=== PATIENT | female | born 1990 | race Caucasian/White ===

== ENCOUNTER → 2016-11-26 | Outpatient (CLI) | payer OTHER, BC ==
--- NOTE | 2016-11-27 20:41 | US ---
Examination: Greater than 14 weeks transabdominal ultrasound with color Doppler and M-mode evaluatio n. HISTORY: Screening FINDINGS: LMP is 06/11/2016 EVALUATION: Posterior placenta with a breech lie and grade 1-2. Visually amniotic fluid is wit hin normal limits. Three-vessel cord is seen. Ventricles are within normal limits. Four chamber heart is noted. Heart rate is 137 beats per minute. BIOMETRY AND GESTATIONAL AGE: Biparietal diameter 4.6 cm. The abdominal circumference measures 14.9 cm. The femoral length is 3.1 cm with head circumference of 17.1 cm. Gestational age is 19 weeks and 5 days. The expected date of delivery is approximately 04/17/2017. Fetus weight is 315 grams. Overall the fetus is within the less than 3rd percentile. The previous estimated date of delivery was 04/07/2017. Other detail anatomy summarized into PACs sheet after the images. No anatomical anomalies. IMPRESSION: 1. Single active IU with breech fetus. Posterior placenta with grade 1-2, no placenta prev ia. 2. The fetus measures small for gestational age, the estimated date of delivery is 04/17/2017, previou sly the estimated date of delivery was 04/07/2017.
== END | disposition home or self-care (01) ==
LOC: MW.US 14:01
PROVIDERS: ATTEND Obstetrics & Gynecology
DX: Z36 Encounter for antenatal screening of mother (principal); O32.1XX0 Maternal care for breech presentation, not applicable or unspecified; Z3A.19 19 weeks gestation of pregnancy
CPT/HCPCS: 36415; 76805; 76805-26; 82950

== ENCOUNTER → 2016-12-25 | Outpatient (CLI) | payer OTHER, BC | LOC: MW.CHOBGYN 14:32 | PROVIDERS: ATTEND Obstetrics & Gynecology | DX: Z34.90 Encounter for supervision of normal pregnancy, unspecified, unspecified trimester (principal) | CPT/HCPCS: 36415; 81003; 85027 ==

== ENCOUNTER 2017-04-15 03:30 | Inpatient (IN) | payer OTHER, SELFPAY ==
[2017-04-15] MEDS ORDERED: Sodium Chloride 0.9% 10 ML Syringe FLUSH PRN (03:46)
[2017-04-15] MEDS ORDERED: Misoprostol 200 MCG Tab PO PRN (03:46)
[2017-04-15] MEDS ORDERED: Sodium Chloride 0.9% 2.5 ML Syringe FLUSH PRN (03:46)
[2017-04-15] MEDS ORDERED: Nalbuphine 10 MG/1 ML Vial IVPUSH PRN ×3 (03:46→22:12)
[2017-04-15] MEDS ORDERED: Terbutaline 1 MG/ML SDV SUBCUT PRN (03:46)
[2017-04-15] MEDS ORDERED: Lidocaine 1% 50 ML MDV INJECT PRN (03:46)
[2017-04-15] MEDS ORDERED: Water For Irrigation,Sterile 1,000 ML Container IRR PRN (03:46)
[2017-04-15] MEDS ORDERED: Methylergonovine 0.2 MG/1 ML Amp IM PRN (03:46)
[2017-04-15] MEDS ORDERED: Carboprost Tromethamine 250 MCG/1 ML Amp IM PRN (03:46)
[2017-04-15] MEDS ORDERED: Oxytocin/Lactated Ringers 30 UNIT/500 ML BAG IV SCH (04:00)
[2017-04-15] MEDS ORDERED: Misoprostol 25 MCG (1/4 of 100 MCG) Tab VAG SCH (04:00)
[2017-04-15] MEDS ORDERED: Misoprostol 25 MCG (1/4 of 100 MCG) Tab PO SCH (04:00)
[2017-04-15] MEDS: Misoprostol 25 MCG (1/4 of 100 MCG) Tab PO PRN ×2 (08:38→12:45)
[2017-04-15] MEDS: Misoprostol 25 MCG (1/4 of 100 MCG) Tab VAG PRN ×2 (08:38→12:45)
--- NOTE | 2017-04-15 12:37 | PCM.LDHP ---
L&D History of Present Illness - General Date of Service: 04/15/17 Admit Problem/Dx: Patient Status Order with Admit Dx/Problem 04/15/17 03:46 Patient Status [ADT] Routine Admission Diagnosis/Problem Admission Diagnosis/Problem 04/15/17 12:33 26 yo EDC 04/07/2017 41 1/7 wks gestation.A+, Rubella equivocal, GBS neg. IOL for post dates Source of Information: Patient History Limitations: Reports: No Limitations - History of Present Illness Improves with: Reports: None Worsens with: Reports: None Associated Symptoms: Reports: N - Related Data Allergies/Adverse Reactions: Allergies Allergy/AdvReac Type Severity Reaction Status Date / Time No Known Allergies Allergy Verified 11/07/15 11:35 Home Medications: Home Meds Drospir/Eth Estra/Levomefol Ca [Beyaz 28] 1 tab PO ASDIRECTED 11/07/15 [History] Past Medical History HEENT History: Reports: Impaired Vision Other HEENT History: wears glasses Cardiovascular History: Reports: None Respiratory History: Reports: None Gastrointestinal History: Reports: None Genitourinary History: Reports: None 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 Migranes, takes Excedrine Psychiatric History: Reports: None Endocrine/Metabolic History: Reports: None Hematologic History: Reports: None Immunologic History: Reports: None Oncologic (Cancer) History: Reports: None Dermatologic History: Reports: Other (See Below) Other Dermatologic History: states gets skin rash from dish soap - Past Surgical History Female Surgical History: Reports: LEEP Social & Family History - Family History Family Medical History: Noncontributory - Tobacco Use Smoking Status *Q: Never Smoker - Recreational Drug Use Recreational Drug Use: No Drug Use in Last 12 Months: No H&P Review of Systems - Review of Systems: Review Of Systems: See Below General: Reports: No Symptoms HEENT: Reports: No Symptoms Pulmonary: Reports: No Symptoms Cardiovascular: Reports: No Symptoms Gastrointestinal: Reports: No Symptoms Genitourinary: Reports: No Symptoms Musculoskeletal: Reports: No Symptoms Skin: Reports: No Symptoms Psychiatric: Reports: No Symptoms Neurological: Reports: No Symptoms Hematologic/Lymphatic: Reports: No Symptoms Immunologic: Reports: No Symptoms L&D Exam - Exam Exam: See Below - Vital Signs Weight: 68.946 kg - Exam General: Alert, Oriented, Cooperative HEENT: Hearing Intact Lungs: Normal Respiratory Effort GI/Abdominal Exam: Soft, Non-Tender, No Organomegaly Rectal Exam: Deferred Genitourinary: Normal external exam, Normal bimanual exam Back Exam: Full Range of Motion Extremities: Normal Range of Motion, Non-Tender, No Pedal Edema Skin: Warm, Dry, Intact Neurological: Reflexes Equal Bilateral, Normal Speech, Normal Tone Psychiatric: Alert, Normal Affect, Normal Mood - Patient Data Lab Results Last 24 hrs: Laboratory Results - last 24 hr 04/15/17 04/15/17 Range/Units 04:03 04:03 WBC 9.31 (4.0-11.0) K/uL RBC 4.23 L (4.30-5.90) M/uL Hgb 12.0 (12.0-16.0) g/dL Hct 36.5 (36.0-46.0) % MCV 86.3 (80.0-98.0) fL MCH 28.4 (27.0-32.0) pg MCHC 32.9 (31.0-37.0) g/dL RDW Std Deviation 43.8 (28.0-62.0) fl RDW Coeff of Piyush 14 (11.0-15.0) % Plt Count 208 (150-400) K/uL MPV 10.60 (7.40-12.00) fL Nucleated RBC % 0.0 /100WBC Nucleated RBCs # 0 K/uL Blood Type A POSITIVE Antibody Screen NEGATIVE Result Diagrams: 04/15/17 04:03 - Problem List (1) Supervision of normal IUP (intrauterine ) in primigravida SNOMED Code(s): 95371957, 517494011, 562564480, 318232044 ICD Code: Z34.00 - ENCNTR FOR SUPRVSN OF NORMAL FIRST , UNSP TRIMESTER Status: Acute Priority: High Current Visit: Yes Qualifiers: Trimester: third trimester Qualified Code(s): Z34.03 - Encounter for supervision of normal first , third trimester (2) Post-dates SNOMED Code(s): 37830141 ICD Code: O48.0 - POST-TERM Status: Acute Priority: High Current Visit: Yes Qualifiers: Post-term type: 40-42 weeks gestation Qualified Code(s): O48.0 - Post-term Problem List Initiated/Reviewed/Updated: Yes Orders Last 24hrs: Active Orders 24 hr Category Date Time Status Patient Status [ADT] Routine ADT 04/15/17 03:46 Active Bedrest Bathroom Privileges [RC] ASDIRECTED Care 04/15/17 03:46 Active Communication Order [RC] ASDIRECTED Care 04/15/17 03:46 Active Communication Order [RC] ASDIRECTED Care 04/15/17 03:46 Active Communication Order [RC] ASDIRECTED Care 04/15/17 03:46 Active Heart Tones [RC] CONTINUOUS Care 04/15/17 03:46 Active Non Stress Test [RC] PER UNIT ROUTINE Care 04/15/17 03:46 Active May Shower [RC] ASDIRECTED Care 04/15/17 03:46 Active Notify Provider [RC] PRN Care 04/15/17 03:46 Active Notify Provider [RC] PRN Care 04/15/17 03:46 Active Notify Provider [RC] PRN Care 04/15/17 03:46 Active Notify Provider [RC] STAT Care 04/15/17 03:46 Active Oxygen Therapy [RC] ASDIRECTED Care 04/15/17 03:46 Active Up ad Ruth [RC] ASDIRECTED Care 04/15/17 03:46 Active Vaginal Exam [RC] PRN Care 04/15/17 03:46 Active Vaginal Exam [RC] PRN Care 04/15/17 03:46 Active Vital Signs [RC] PER UNIT ROUTINE Care 04/15/17 03:46 Active Vital Signs [RC] PER UNIT ROUTINE Care 04/15/17 03:46 Active Regular Diet [DIET] Diet 04/15/17 Breakfast Active Carboprost Tromethamine [Hemabate DS] Med 04/15/17 03:46 Active 250 mcg IM ASDIRECTED PRN Lactated Ringers [Ringers, Lactated] 1,000 ml Med 04/15/17 04:00 Active IV ASDIRECTED Lidocaine 1% [Xylocaine 1%] Med 04/15/17 03:46 Active 50 ml INJECT .ONCE PRN Methylergonovine [Methergine] Med 04/15/17 03:46 Active 0.2 mg IM ASDIRECTED PRN Misoprostol [Cytotec] Med 04/15/17 03:46 Active 200 mcg PO .ONCE PRN Misoprostol [Cytotec] Med 04/15/17 04:00 Active 25 mcg PO .ONCE Misoprostol [Cytotec] Med 04/15/17 03:48 Active 25 mcg PO Q4H PRN Misoprostol [Cytotec] Med 04/15/17 04:00 Active 25 mcg VAG .ONCE Misoprostol [Cytotec] Med 04/15/17 03:46 Active 25 mcg VAG Q4H PRN Sodium Chloride 0.9% [Saline Flush] Med 04/15/17 03:46 Active 10 ml FLUSH ASDIRECTED PRN Sodium Chloride 0.9% [Saline Flush] Med 04/15/17 03:46 Active 2.5 ml FLUSH ASDIRECTED PRN Terbutaline [Brethine] Med 04/15/17 03:46 Active 0.25 mg SUBCUT ASDIRECTED PRN Water For Irrigation,Sterile [Sterile Water for Med 04/15/17 03:46 Active Irrigation] 1,000 ml IRR ASDIRECTED PRN Scalp Electrode [WOMSER] Per Unit Routine Oth 04/15/17 03:46 Ordered Medication Administration Instruction [OM.PC] Q3H Oth 04/15/17 04:00 Ordered Peripheral IV Insertion Adult [OM.PC] Routine Oth 04/15/17 03:46 Ordered Resuscitation Status Routine Resus Stat 04/15/17 03:46 Ordered Medication Orders Carboprost Tromethamine (Hemabate Ds) 250 mcg IM ASDIRECTED PRN PRN Reason: Post Hemorrhage Lactated Ringer's (Ringers, Lactated) 1,000 mls @ 150 mls/hr IV ASDIRECTED CHARLES Lidocaine HCl (Xylocaine 1%) 50 ml INJECT .ONCE PRN PRN Reason: Laceration repair Methylergonovine Maleate (Methergine) 0.2 mg IM ASDIRECTED PRN PRN Reason: Post Hemorrhage Misoprostol (Cytotec) 200 mcg PO .ONCE PRN PRN Reason: Post Hemorrhage Misoprostol (Cytotec) 25 mcg VAG .ONCE CHARLES Last Admin: 04/15/17 04:22 Dose: 25 mcg Misoprostol (Cytotec) 25 mcg VAG Q4H PRN PRN Reason: Cervical Ripening Stop: 04/16/17 07:47 Last Admin: 04/15/17 08:38 Dose: 25 mcg Misoprostol (Cytotec) 25 mcg PO .ONCE CHARLES Last Admin: 04/15/17 04:22 Dose: 25 mcg Misoprostol (Cytotec) 25 mcg PO Q4H PRN PRN Reason: Cervical Ripening Stop: 04/16/17 07:49 Last Admin: 04/15/17 08:38 Dose: 25 mcg Sodium Chloride (Saline Flush) 10 ml FLUSH ASDIRECTED PRN PRN Reason: Keep Vein Open Sodium Chloride (Saline Flush) 2.5 ml FLUSH ASDIRECTED PRN PRN Reason: Keep Vein Open Sterile Water (Sterile Water For Irrigation) 1,000 ml IRR ASDIRECTED PRN PRN Reason: delivery Terbutaline Sulfate (Brethine) 0.25 mg SUBCUT ASDIRECTED PRN PRN Reason: Tacysystole Assessment/Plan Comment:: IOL A: 26 yo EDC 04/07/2017 41 1/7 wks gestation.A+, Rubella equivocal, GBS neg. IOL for post dates P: Cytotec per protocol, pitocin, epidural prn, anticipate
--- NOTE | 2017-04-15 15:13 | PCM.PREANE ---
Preanesthetic Assessment - Anesthesia/Transfusion/Family Hx Anesthesia History: Prior Anesthesia Without Reaction - Review of Systems General: No Symptoms Pulmonary: No Symptoms Cardiovascular: No Symptoms Gastrointestinal: No Symptoms Neurological: No Symptoms Other: Reports: None - Physical Assessment Height: 1.68 m Weight: 68.946 kg ASA Class: 1 Mental Status: Alert & Oriented x3 Dentition: Reports: Normal Dentition ROM/Head Extension: Full Lungs: Clear to Auscultation, Normal Respiratory Effort Cardiovascular: Regular Rate, Regular Rhythm - Lab Values: Laboratory Last Values WBC 9.31 K/uL (4.0-11.0) 04/15/17 04:03 RBC 4.23 M/uL (4.30-5.90) L 04/15/17 04:03 Hgb 12.0 g/dL (12.0-16.0) 04/15/17 04:03 Hct 36.5 % (36.0-46.0) 04/15/17 04:03 MCV 86.3 fL (80.0-98.0) 04/15/17 04:03 MCH 28.4 pg (27.0-32.0) 04/15/17 04:03 MCHC 32.9 g/dL (31.0-37.0) 04/15/17 04:03 RDW Std Deviation 43.8 fl (28.0-62.0) 04/15/17 04:03 RDW Coeff of Piyush 14 % (11.0-15.0) 04/15/17 04:03 Plt Count 208 K/uL (150-400) 04/15/17 04:03 MPV 10.60 fL (7.40-12.00) 04/15/17 04:03 Nucleated RBC % 0.0 /100WBC 04/15/17 04:03 Nucleated RBCs # 0 K/uL 04/15/17 04:03 Blood Type A POSITIVE 04/15/17 04:03 Antibody Screen NEGATIVE 04/15/17 04:03 - Allergies Allergies/Adverse Reactions: Allergies Allergy/AdvReac Type Severity Reaction Status Date / Time No Known Allergies Allergy Verified 11/07/15 11:35 - Blood Blood Available: Yes - Acknowledgements Anesthesia Type Planned: Epidural Pt an Appropriate Candidate for the Planned Anesthesia: Yes Alternatives and Risks of Anesthesia Discussed w Pt/Guardian: Yes Pt/Guardian Understands and Agrees with Anesthesia Plan: Yes PreAnesthesia Questionnaire HEENT History: Reports: Impaired Vision Other HEENT History: wears glasses Cardiovascular History: Reports: None Respiratory History: Reports: None Gastrointestinal History: Reports: None Genitourinary History: Reports: None 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 Migranes, takes Excedrine Psychiatric History: Reports: None Endocrine/Metabolic History: Reports: None Hematologic History: Reports: None Immunologic History: Reports: None Oncologic (Cancer) History: Reports: None Dermatologic History: Reports: Other (See Below) Other Dermatologic History: states gets skin rash from dish soap - Past Surgical History Female Surgical History: Reports: LEEP - SUBSTANCE USE Smoking Status *Q: Never Smoker Tobacco Use Within Last Twelve Months: No Recreational Drug Use History: No - HOME MEDS Home Medications: Home Meds Drospir/Eth Estra/Levomefol Ca [Beyaz 28] 1 tab PO ASDIRECTED 11/07/15 [History] - CURRENT (IN HOUSE) MEDS Current Meds: Current Medications Carboprost Tromethamine (Hemabate Ds) 250 mcg IM ASDIRECTED PRN PRN Reason: Post Hemorrhage Lactated Ringer's (Ringers, Lactated) 1,000 mls @ 150 mls/hr IV ASDIRECTED CHARLES Lidocaine HCl (Xylocaine 1%) 50 ml INJECT .ONCE PRN PRN Reason: Laceration repair Methylergonovine Maleate (Methergine) 0.2 mg IM ASDIRECTED PRN PRN Reason: Post Hemorrhage Misoprostol (Cytotec) 200 mcg PO .ONCE PRN PRN Reason: Post Hemorrhage Misoprostol (Cytotec) 25 mcg VAG .ONCE CHARLES Last Admin: 04/15/17 04:22 Dose: 25 mcg Misoprostol (Cytotec) 25 mcg VAG Q4H PRN PRN Reason: Cervical Ripening Stop: 04/16/17 07:47 Last Admin: 04/15/17 12:45 Dose: 25 mcg Misoprostol (Cytotec) 25 mcg PO .ONCE CHARLES Last Admin: 04/15/17 04:22 Dose: 25 mcg Misoprostol (Cytotec) 25 mcg PO Q4H PRN PRN Reason: Cervical Ripening Stop: 04/16/17 07:49 Last Admin: 04/15/17 12:45 Dose: 25 mcg Nalbuphine HCl (Nubain) 10 mg IVPUSH Q1H PRN PRN Reason: Pain (moderate 4-6) Last Admin: 04/15/17 14:58 Dose: 10 mg Sodium Chloride (Saline Flush) 10 ml FLUSH ASDIRECTED PRN PRN Reason: Keep Vein Open Sodium Chloride (Saline Flush) 2.5 ml FLUSH ASDIRECTED PRN PRN Reason: Keep Vein Open Sterile Water (Sterile Water For Irrigation) 1,000 ml IRR ASDIRECTED PRN PRN Reason: delivery Terbutaline Sulfate (Brethine) 0.25 mg SUBCUT ASDIRECTED PRN PRN Reason: Tacysystole Discontinued Medications Oxytocin/Lactated Ringer's (Pitocin In Lr 30 Units/500 Ml) 30 unit in 500 mls @ 999 mls/hr IV TITRATE CHARLES; 999 MUNITS/MIN PRN Reason: Protocol Stop: 04/15/17 04:31 Nalbuphine HCl (Nubain) 10 mg IVPUSH Q1H PRN PRN Reason: Pain (severe 7-10) Stop: 04/15/17 04:47
[2017-04-15] MEDS: Lactated Ringers 1,000 ML IV SCH ×4 (15:14→23:50)
[2017-04-15] MEDS ORDERED: fentaNYL 100 MCG/2 ML SDV ONE ×3 (15:23→21:22)
[2017-04-15] MEDS ORDERED: Ropivacaine HCl/PF 100 ML ONE (15:24)
[2017-04-15] MEDS ORDERED: Oxytocin/Lactated Ringers 30 UNIT/500 ML BAG ONE (17:01)
[2017-04-15] MEDS ORDERED: Ropivacaine 0.2% 2 MG/ML 20 ML SDV ONE (20:36)
[2017-04-15] MEDS ORDERED: Citric Acid/Sodium Citrate Solution 30 ML Cup ONE (20:40)
[2017-04-15] MEDS ORDERED: Propofol 200 MG/20 ML SDV ONE (21:15)
[2017-04-15] MEDS ORDERED: Ketamine 500 mg/10 ML MDV ONE (21:22)
[2017-04-15] MEDS ORDERED: Octyl 2-Cyanoacrylate 1 Tube ONE (21:48)
[2017-04-15] MEDS ORDERED: Morphine PF 10 MG/10 ML SDV ONE (21:50)
[2017-04-15] MEDS ORDERED: Lanolin 100% Cream 7 GM Tube TOP PRN (21:54)
[2017-04-15] MEDS ORDERED: Bisacodyl 10 MG Supp RECTAL PRN (21:54)
[2017-04-15] MEDS ORDERED: Acetaminophen/oxyCODONE 325-5 MG Tab PO PRN (21:54)
[2017-04-15] MEDS ORDERED: diphenhydrAMINE 50 MG/ML SDV IVPUSH PRN (21:54)
[2017-04-15] MEDS ORDERED: Ondansetron 4 MG/2 ML SDV IV PRN (21:54)
--- NOTE | 2017-04-15 21:58 | PCM.OPNOTE ---
- General Post-Op/Procedure Note Date of Surgery/Procedure: 04/15/17 Operative Procedure(s): Primary C/section Pre Op Diagnosis: Postdate Falir to progress Post-Op Diagnosis: Same Anesthesia Technique: Epidural Primary Surgeon: Jeffrey Randolph Streaming Media Specialist: Waleska Arnett EBL in mLs: 700 Complications: None Condition: Good
[2017-04-15] MEDS ORDERED: Naloxone 0.4 MG/ML Syringe IVPUSH PRN (22:12)
[2017-04-15] MEDS: Ketorolac 30 MG/ML SDV IVPUSH SCH (22:21)
--- NOTE | 2017-04-15 22:58 | PCM.POSTAN ---
POST ANESTHESIA ASSESSMENT - MENTAL STATUS Mental Status: Alert, Oriented - RESPIRATORY Respiratory Status: Respiratory Rate WNL, Airway Patent, O2 Saturation Stable - CARDIOVASCULAR CV Status: Pulse Rate WNL, Blood Pressure Stable - GASTROINTESTINAL GI Status: No Symptoms - PAIN Pain Score: 4 (recen toradol given) - POST OP HYDRATION Hydration Status: Adequate & Stable - OBSERVATIONS Free Text/Narrative:: Pain meds for breakthrough were written as addendum to Dr. Randolph order for oxycodone/acetominophen while neuroaxis orders in effect.
--- NOTE | 2017-04-15 23:50 | OR ---
SURGEON: Jeffrey Randolph MD DATE OF PROCEDURE: PREOPERATIVE DIAGNOSIS: Intrauterine 41 weeks plus 1 failed induction, persistent occiput posterior. POSTOPERATIVE DIAGNOSIS: Intrauterine 41 weeks plus 1 failed induction, persistent occiput posterior. OPERATION PERFORMED: Primary low transverse section. CUSTOMS APPRAISER: Waleska Arnett CNM. ANESTHESIA: Epidural, Mr. True Gonzalez and Dr. Pierce. ESTIMATED BLOOD LOSS: 700 mL. COMPLICATION: None. INDICATION FOR SURGERY: This patient is 26 primigravida. She is followed in our clinic. She was 41 plus one. She was admitted for induction. She had responded to Cytotec, and she progressed to complete, complete. The patient had spontaneous rupture of membrane, there was a clear fluid. The patient had epidural anesthesia for labor analgesia. She pushed in excess of 3 hours. I was consulted for evaluation. On my arrival, vital sign was stable. heart rate was category 1. The patient had contraction. Pelvic exam and vaginal examination revealed that she had vertex. She was complete, complete. She was +1 to +2 station, and I felt that she had an occiput posterior, and I explained that to the patient and her we gave them the option we could try vacuum extraction; however, I thought it would be a difficult vacuum extraction and the patient and her elected to have section. PROCEDURE IN DETAIL: The patient was brought to the OR, properly identified. After adequate level of epidural anesthesia with a Rascon catheter in the bladder, low transverse Pfannenstiel skin incision done. Yelena's fascia and rectus fascia were opened in direction of the incision. The 2 recti muscles were , and peritoneal cavity was entered. Low transverse uterine incision was done, extended manually with hand. Fetus position was in occiput posterior, and it was pretty jammed into the pelvis and the vagina. With the aid of the circulating nurse to push the fetus from below, I was able to extract the fetus and handed to the space sciences director for resuscitation. Dr. Ashley who was present at the time of the delivery. The fetus cried immediately. The score was 7 and 9; however, the weight was not available. Placenta delivered spontaneous, complete, and intact and repair of the lower uterine segment was done with 2-0 Vicryl continuous interlocking in 2 layers. Reperitonealization done with 3-0 Vicryl continuous and then the peritoneal cavity evacuated completely from all blood and blood clot and closed with 3-0 Vicryl continuous, and the rectus fascia is closed with #1 PDS double strand continuous. The Yelena's fascia with 3-0 Vicryl continuous and skin with 5-0 monofilament subcuticular and Dermabond. Instrument and sponge counts were correct. The patient tolerated the procedure well, went to recovery room in stable and general condition. TAMMI / RAMU /[id number]
[2017-04-16] MEDS: Acetaminophen/oxyCODONE 325-5 MG Tab PO PRN (03:01)
[2017-04-16] MEDS: Ketorolac 30 MG/ML SDV IVPUSH SCH ×4 (04:12→22:01)
[2017-04-16] MEDS: Lactated Ringers 1,000 ML IV SCH (08:11)
--- NOTE | 2017-04-16 08:12 | PCM48HPAN ---
Post Anesthesia Note - EVALUATION WITHIN 48HRS OF ANESTHETIC Vital Signs in Normal Range: Yes Patient Participated in Evaluation: Yes Respiratory Function Stable: Yes Airway Patent: Yes Cardiovascular Function Stable: Yes Hydration Status Stable: Yes Pain Control Satisfactory: Yes (Single PO analgesic overnite...good analgesia from duramorph) Nausea and Vomiting Control Satisfactory: Yes Mental Status Recovered: Yes
--- NOTE | 2017-04-16 08:25 | PCM.PNPP ---
- General Info Date of Service: 04/16/17 Admission Dx/Problem (Free Text): Patient Status Order with Admit Dx/Problem 04/15/17 03:46 Patient Status [ADT] Routine Admission Diagnosis/Problem Admission Diagnosis/Problem 04/15/17 12:33 26 yo EDC 04/07/2017 41 1/7 wks gestation.A+, Rubella equivocal, GBS neg. IOL for post dates Functional Status: Reports: Pain Controlled, Tolerating Diet - Review of Systems General: Reports: No Symptoms HEENT: Reports: No Symptoms Pulmonary: Reports: No Symptoms Cardiovascular: Reports: No Symptoms Gastrointestinal: Reports: No Symptoms Genitourinary: Reports: No Symptoms Musculoskeletal: Reports: No Symptoms Skin: Reports: No Symptoms Neurological: Reports: No Symptoms Psychiatric: Reports: No Symptoms - General Info Date of Service: 04/16/17 - Patient Data Vital Signs - Most Recent: Last Vital Signs Temp 37.3 C 04/16/17 04:30 Pulse 98 04/16/17 04:30 Resp 16 04/16/17 07:00 BP 122/76 04/16/17 04:30 Pulse Ox 96 04/16/17 07:00 Weight - Most Recent: 68.946 kg I&O - Last 24 Hours: Intake & Output 04/15/17 04/16/17 04/16/17 22:59 06:59 14:59 Intake Total 1750 1105 Output Total 250 800 Balance 1500 305 Lab Results - Last 24 Hours: Laboratory Results - last 24 hr 04/16/17 Range/Units 05:02 Hgb 10.2 L (12.0-16.0) g/dL Hct 30.9 L (36.0-46.0) % Med Orders - Current: Current Medications Bisacodyl (Dulcolax) 10 mg RECTAL .ONCE PRN PRN Reason: Constipation Carboprost Tromethamine (Hemabate Ds) 250 mcg IM ASDIRECTED PRN PRN Reason: Post Hemorrhage Diphenhydramine HCl (Benadryl) 25 mg IVPUSH Q6H PRN PRN Reason: Itching or Nausea Docusate Sodium (Colace) 100 mg PO BID CHARLES Emollient Ointment (Lansinoh Hpa) 0 gm TOP ASDIRECTED PRN PRN Reason: Sore Nipples Lactated Ringer's (Ringers, Lactated) 1,000 mls @ 150 mls/hr IV ASDIRECTED [facility] Last Admin: 04/15/17 20:46 Dose: 150 mls/hr Lactated Ringer's (Ringers, Lactated) 1,000 mls @ 125 mls/hr IV ASDIRECTED [facility] Last Admin: 04/16/17 08:11 Dose: 500 mls/hr Ibuprofen (Motrin) 800 mg PO Q8H PRN PRN Reason: mild pain or fever Ketorolac Tromethamine (Toradol) 30 mg IVPUSH Q6H [facility] Stop: 04/16/17 22:01 Last Admin: 04/16/17 04:12 Dose: 30 mg Lidocaine HCl (Xylocaine 1%) 50 ml INJECT .ONCE PRN PRN Reason: Laceration repair Methylergonovine Maleate (Methergine) 0.2 mg IM ASDIRECTED PRN PRN Reason: Post Hemorrhage Misoprostol (Cytotec) 200 mcg PO .ONCE PRN PRN Reason: Post Hemorrhage Misoprostol (Cytotec) 25 mcg VAG .ONCE [facility] Last Admin: 04/15/17 04:22 Dose: 25 mcg Misoprostol (Cytotec) 25 mcg PO .ONCE [facility] Last Admin: 04/15/17 04:22 Dose: 25 mcg Nalbuphine HCl (Nubain) 10 mg IVPUSH Q1H PRN PRN Reason: Pain (moderate 4-6) Last Admin: 04/15/17 14:58 Dose: 10 mg Nalbuphine HCl (Nubain) 5 mg IVPUSH Q3H PRN PRN Reason: Pruritis Stop: 04/16/17 22:13 Naloxone HCl (Narcan) 0.1 mg IVPUSH ONETIME PRN PRN Reason: Respiratory Depression Stop: 04/16/17 22:13 Ondansetron HCl (Zofran) 4 mg IV Q4H PRN PRN Reason: Nausea/Vomiting Oxycodone/Acetaminophen (Percocet 325-5 Mg) 1 tab PO Q4H PRN PRN Reason: Pain (moderate 4-6) Last Admin: 04/16/17 03:01 Dose: 1 tab Oxycodone/Acetaminophen (Percocet 325-5 Mg) 2 tab PO Q4H PRN PRN Reason: Pain (moderate 4-6) Sodium Chloride (Saline Flush) 10 ml FLUSH ASDIRECTED PRN PRN Reason: Keep Vein Open Sodium Chloride (Saline Flush) 2.5 ml FLUSH ASDIRECTED PRN PRN Reason: Keep Vein Open Sterile Water (Sterile Water For Irrigation) 1,000 ml IRR ASDIRECTED PRN PRN Reason: delivery Terbutaline Sulfate (Brethine) 0.25 mg SUBCUT ASDIRECTED PRN PRN Reason: Tacysystole Discontinued Medications Citric Acid/Sodium Citrate (Bicitra Solution) Confirm Administered Dose 30 ml .ROUTE .STK-MED ONE Stop: 04/15/17 20:41 Last Admin: 04/15/17 20:46 Dose: 30 ml Fentanyl (Sublimaze) Confirm Administered Dose 100 mcg .ROUTE .STK-MED ONE Stop: 04/15/17 15:24 Fentanyl (Sublimaze) Confirm Administered Dose 100 mcg .ROUTE .STK-MED ONE Stop: 04/15/17 21:11 Fentanyl (Sublimaze) Confirm Administered Dose 100 mcg .ROUTE .STK-MED ONE Stop: 04/15/17 21:23 Oxytocin/Lactated Ringer's (Pitocin In Lr 30 Units/500 Ml) 30 unit in 500 mls @ 999 mls/hr IV TITRATE CHARLES; 999 MUNITS/MIN PRN Reason: Protocol Stop: 04/15/17 04:31 Ropivacaine (Naropin 0.2%) Confirm Administered Dose 100 mls @ as directed .ROUTE .STK-MED ONE Stop: 04/15/17 15:25 Last Admin: 04/15/17 15:53 Dose: Not Given Oxytocin/Lactated Ringer's (Pitocin In Lr 30 Units/500 Ml) Confirm Administered Dose 30 unit in 500 mls @ as directed .ROUTE .STK-MED ONE Stop: 04/15/17 17:02 Ketamine HCl (Ketalar) Confirm Administered Dose 500 mg .ROUTE .STK-MED ONE Stop: 04/15/17 21:23 Misoprostol (Cytotec) 25 mcg VAG Q4H PRN PRN Reason: Cervical Ripening Stop: 04/16/17 07:47 Last Admin: 04/15/17 12:45 Dose: 25 mcg Misoprostol (Cytotec) 25 mcg PO Q4H PRN PRN Reason: Cervical Ripening Stop: 04/16/17 07:49 Last Admin: 04/15/17 12:45 Dose: 25 mcg Morphine Sulfate (Duramorph Pf) Confirm Administered Dose 10 mg .ROUTE .STK-MED ONE Stop: 04/15/17 21:51 Nalbuphine HCl (Nubain) 10 mg IVPUSH Q1H PRN PRN Reason: Pain (severe 7-10) Stop: 04/15/17 04:47 Octyl Cyanoacrylate (Dermabond Advance) Confirm Administered Dose 1 applic .ROUTE .STK-MED ONE Stop: 04/15/17 21:49 Propofol (Diprivan 20 Ml) Confirm Administered Dose 200 mg .ROUTE .STK-MED ONE Stop: 04/15/17 21:16 Ropivacaine (Naropin 0.2%) Confirm Administered Dose 20 ml .ROUTE .STK-MED ONE Stop: 04/15/17 20:37 - Interaction Disposition, : [place] in Room with Family Infant Interaction: Holding Feeding: Attempted ; Nursed Fair/Poor Support Person: Mother, Significant Other - Recovery Exam Fundal Tone: Firm Fundal Level: At Umbilicus Fundal Placement: Midline Lochia Amount: Scant Lochia Color: Rubra/Red Perineum Description: Intact, Minimal Bruising/Swelling Bladder Status: Indwelling Catheter in Place Urinary Elimination: Indwelling Catheter - Exam General: Alert, Oriented, Cooperative, No Acute Distress Lungs: Clear to Auscultation, Normal Respiratory Effort Cardiovascular: Regular Rate, Regular Rhythm, No Murmurs GI/Abdominal Exam: Soft, Non-Tender, No Organomegaly, No Distention Extremities: Normal Inspection, Normal Range of Motion, Non-Tender, No Pedal Edema Skin: Warm, Dry, Intact Wound/Incisions: Dressing Dry and Intact Neurological: No New Focal Deficit, Normal Speech, Normal Tone Psy/Mental Status: Alert, Normal Affect, Normal Mood - Problem List & Annotations (1) Supervision of normal IUP (intrauterine ) in primigravida SNOMED Code(s): 52825309, 049010334, 906350056, 834477931 Code(s): Z34.00 - ENCNTR FOR SUPRVSN OF NORMAL FIRST , UNSP TRIMESTER Status: Acute Priority: High Current Visit: Yes Qualifiers: Trimester: third trimester Qualified Code(s): Z34.03 - Encounter for supervision of normal first , third trimester (2) Post-dates SNOMED Code(s): 48610654 Code(s): O48.0 - POST-TERM Status: Acute Priority: High Current Visit: Yes Qualifiers: Post-term type: 40-42 weeks gestation Qualified Code(s): O48.0 - Post-term (3) delivery, delivered, current hospitalization SNOMED Code(s): 077027104 Code(s): O82 - ENCOUNTER FOR DELIVERY WITHOUT INDICATION Status: Acute Priority: High Current Visit: Yes - Problem List Review Problem List Initiated/Reviewed/Updated: Yes - My Orders Last 24 Hours: My Active Orders 04/15/17 14:38 Nalbuphine [Nubain] 10 mg IVPUSH Q1H PRN - Assessment Assessment:: PCS due to CPD, male, healthy, APGARS 4/9, Wt: 6lb 15oz. Post PCS, dressing dry and intact, perera cath draining with dark urine. No edema, LS clear, HRR no murmurs. Stable, good appetite. - Plan Plan:: IOL A: 26 yo EDC 04/07/2017 41 1/7 wks gestation.A+, Rubella equivocal, GBS neg. IOL for post dates P: Cytotec per protocol, pitocin, epidural prn, anticipate Post /op day 1 Routine pp plan of care. Give 500cc bolus LR and encourage fluids, OOB ad alphonso this morning, may shower. Dr Randolph updated on pt status
[2017-04-16] MEDS: Docusate Sodium 100 MG Cap PO SCH (21:05)
[2017-04-17] MEDS: Docusate Sodium 100 MG Cap PO SCH ×2 (00:12→09:06)
[2017-04-17] MEDS ORDERED: Ibuprofen 800 MG Tab PO PRN (04:00)
[2017-04-17] MEDS: Acetaminophen/oxyCODONE 325-5 MG Tab PO PRN (09:06)
[2017-04-17 09:48] VITALS: BP 118/70
--- NOTE | 2017-04-17 10:51 | PCM.DCSUM1 ---
[id number] for incision check and again at 10 days for another incision check. Follow up 6 weeks for post check. - Discharge Data Discharge Date: 04/17/17 Discharge Disposition: Home, Self-Care 01 Condition: Good - Discharge Diagnosis/Problem(s) (1) Supervision of normal IUP (intrauterine ) in primigravida SNOMED Code(s): 68533767, 365162215, 471725831, 338644048 ICD Code: Z34.00 - ENCNTR FOR SUPRVSN OF NORMAL FIRST , UNSP TRIMESTER Status: Acute Priority: High Qualifiers: Trimester: third trimester Qualified Code(s): Z34.03 - Encounter for supervision of normal first , third trimester (2) Post-dates SNOMED Code(s): 44448813 ICD Code: O48.0 - POST-TERM Status: Acute Priority: High Qualifiers: Post-term type: 40-42 weeks gestation Qualified Code(s): O48.0 - Post-term (3) delivery, delivered, current hospitalization SNOMED Code(s): 212476979 ICD Code: O82 - ENCOUNTER FOR DELIVERY WITHOUT INDICATION Status: Acute Priority: High - Patient Summary/Data Operative Procedure(s) Performed: Primary C/section - Patient Instructions Diet: Usual Diet as Tolerated Activity: As Tolerated, Rest and Relax Today Driving: May Drive Today Showering/Bathing: May Shower Notify Provider of: Fever, Increased Pain, Drainage, Nausea and/or Vomiting Other/Special Instructions: Discharge home with baby. Follow up on Saturday for incision check and again at 10 days for another incision check. Follow up 6 weeks for post check. - Discharge Plan Home Medications: Home Meds Acetaminophen/oxyCODONE [Percocet 325-5 MG] 1 - 2 tab PO Q4HR PRN 04/17/17 [ History] Ibuprofen [Motrin] 800 mg PO Q6H PRN 04/17/17 [History] Penicillin V Potassium 500 mg PO Q6HR 04/17/17 [History] Patient Handouts: Vaginal Delivery, Care After Referrals: [facility] [Outside] Jeffrey Randolph MD [Physician] - (1 week- April 19 @ 3:30pm w/ Dr. Randolph week- May 27 @ 9:30am w/ Dr. Randolph) - General Info Date of Service: 04/17/17 Admission Dx/Problem (Free Text: Patient Status Order with Admit Dx/Problem 04/15/17 03:46 Patient Status [ADT] Routine Admission Diagnosis/Problem Admission Diagnosis/Problem 04/15/17 12:33 26 yo EDC 04/07/2017 41 1/7 wks gestation.A+, Rubella equivocal, GBS neg. IOL for post dates Functional Status: Reports: Pain Controlled, Tolerating Diet, Ambulating, Urinating - Review of Systems General: Reports: No Symptoms HEENT: Reports: No Symptoms Pulmonary: Reports: No Symptoms Cardiovascular: Reports: No Symptoms Gastrointestinal: Reports: No Symptoms Genitourinary: Reports: No Symptoms Musculoskeletal: Reports: No Symptoms Skin: Reports: No Symptoms Neurological: Reports: No Symptoms Psychiatric: Reports: No Symptoms - Patient Data Vitals - Most Recent: Last Vital Signs Temp 37.1 C 04/17/17 08:00 Pulse 89 04/17/17 08:00 Resp 18 04/17/17 08:00 BP 118/70 04/17/17 08:00 Pulse Ox 98 04/17/17 08:00 Weight - Most Recent: 68.946 kg I&O - Last 24 hours: Intake & Output 04/16/17 04/17/17 04/17/17 22:59 06:59 14:59 Output Total 1050 300 Balance -1050 -300 Lab Results - Last 24 hrs: Laboratory Results - last 24 hr 04/17/17 04/17/17 Range/Units 08:27 09:15 WBC 20.54 H (4.0-11.0) K/uL RBC 3.32 L (4.30-5.90) M/uL Hgb 9.4 L (12.0-16.0) g/dL Hct 28.7 L (36.0-46.0) % MCV 86.4 (80.0-98.0) fL MCH 28.3 (27.0-32.0) pg MCHC 32.8 (31.0-37.0) g/dL RDW Std Deviation 46.2 (28.0-62.0) fl RDW Coeff of Piyush 15 (11.0-15.0) % Plt Count 200 (150-400) K/uL MPV 10.20 (7.40-12.00) fL Neut % (Auto) 91.6 H (48.0-80.0) % Lymph % (Auto) 5.1 L (16.0-40.0) % [place] % (Auto) 2.9 (0.0-15.0) % Eos % (Auto) 0.4 (0.0-7.0) % Baso % (Auto) 0.0 (0.0-1.5) % Neut # (Auto) 18.8 H (1.4-5.7) K/uL Lymph # (Auto) 1.0 (0.6-2.4) K/uL [place] # (Auto) 0.6 (0.0-0.8) K/uL Eos # (Auto) 0.1 (0.0-0.7) K/uL Baso # (Auto) 0.0 (0.0-0.1) K/uL Nucleated RBC % 0.0 /100WBC Nucleated RBCs # 0 K/uL Urine Color RED Urine Appearance SLT CLOUDY Urine pH 6.5 (5.0-8.0) Ur Specific [place] 1.010 (1.001-1.035) Urine Protein NEGATIVE (NEGATIVE) mg/dL Urine Glucose (UA) NEGATIVE (NEGATIVE) mg/dL Urine Ketones NEGATIVE (NEGATIVE) mg/dL Urine Occult Blood LARGE H (NEGATIVE) Urine Nitrite NEGATIVE (NEGATIVE) Urine Bilirubin NEGATIVE (NEGATIVE) Urine Urobilinogen 0.2 (<2.0) EU/dL Ur Leukocyte Esterase SMALL (NEGATIVE) Urine RBC TOO NUMBEROUS TO CT H (0-2/HPF) Urine WBC 1-3 (0-5/HPF) Ur Epithelial Cells FEW (NONE-FEW) Amorphous Sediment RARE (NEGATIVE) Urine Bacteria FEW (NEGATIVE) Med Orders - Current: Current Medications Bisacodyl (Dulcolax) 10 mg RECTAL .ONCE PRN PRN Reason: Constipation Carboprost Tromethamine (Hemabate Ds) 250 mcg IM ASDIRECTED PRN PRN Reason: Post Hemorrhage Diphenhydramine HCl (Benadryl) 25 mg IVPUSH Q6H PRN PRN Reason: Itching or Nausea Docusate Sodium (Colace) 100 mg PO BID CHARLES Last Admin: 04/17/17 09:06 Dose: 100 mg Emollient Ointment (Lansinoh Hpa) 0 gm TOP ASDIRECTED PRN PRN Reason: Sore Nipples Lactated Ringer's (Ringers, Lactated) 1,000 mls @ 150 mls/hr IV ASDIRECTED [facility] Last Admin: 04/15/17 20:46 Dose: 150 mls/hr Lactated Ringer's (Ringers, Lactated) 1,000 mls @ 125 mls/hr IV ASDIRECTED [facility] Last Admin: 04/16/17 08:11 Dose: 500 mls/hr Ibuprofen (Motrin) 800 mg PO Q8H PRN PRN Reason: mild pain or fever Last Admin: 04/17/17 09:08 Dose: 800 mg Lidocaine HCl (Xylocaine 1%) 50 ml INJECT .ONCE PRN PRN Reason: Laceration repair Methylergonovine Maleate (Methergine) 0.2 mg IM ASDIRECTED PRN PRN Reason: Post Hemorrhage Misoprostol (Cytotec) 200 mcg PO .ONCE PRN PRN Reason: Post Hemorrhage Misoprostol (Cytotec) 25 mcg VAG .ONCE [facility] Last Admin: 04/15/17 04:22 Dose: 25 mcg Misoprostol (Cytotec) 25 mcg PO .ONCE [facility] Last Admin: 04/15/17 04:22 Dose: 25 mcg Nalbuphine HCl (Nubain) 10 mg IVPUSH Q1H PRN PRN Reason: Pain (moderate 4-6) Last Admin: 04/15/17 14:58 Dose: 10 mg Ondansetron HCl (Zofran) 4 mg IV Q4H PRN PRN Reason: Nausea/Vomiting Oxycodone/Acetaminophen (Percocet 325-5 Mg) 1 tab PO Q4H PRN PRN Reason: Pain (moderate 4-6) Last Admin: 04/17/17 09:06 Dose: 1 tab Oxycodone/Acetaminophen (Percocet 325-5 Mg) 2 tab PO Q4H PRN PRN Reason: Pain (moderate 4-6) Last Admin: 04/17/17 05:25 Dose: 2 tab Sodium Chloride (Saline Flush) 10 ml FLUSH ASDIRECTED PRN PRN Reason: Keep Vein Open Sodium Chloride (Saline Flush) 2.5 ml FLUSH ASDIRECTED PRN PRN Reason: Keep Vein Open Sterile Water (Sterile Water For Irrigation) 1,000 ml IRR ASDIRECTED PRN PRN Reason: delivery Terbutaline Sulfate (Brethine) 0.25 mg SUBCUT ASDIRECTED PRN PRN Reason: Tacysystole Discontinued Medications Citric Acid/Sodium Citrate (Bicitra Solution) Confirm Administered Dose 30 ml .ROUTE .STK-MED ONE Stop: 04/15/17 20:41 Last Admin: 04/15/17 20:46 Dose: 30 ml Fentanyl (Sublimaze) Confirm Administered Dose 100 mcg .ROUTE .STK-MED ONE Stop: 04/15/17 15:24 Last Admin: 04/17/17 09:41 Dose: Not Given Fentanyl (Sublimaze) Confirm Administered Dose 100 mcg .ROUTE .STK-MED ONE Stop: 04/15/17 21:11 Fentanyl (Sublimaze) Confirm Administered Dose 100 mcg .ROUTE .STK-MED ONE Stop: 04/15/17 21:23 Oxytocin/Lactated Ringer's (Pitocin In Lr 30 Units/500 Ml) 30 unit in 500 mls @ 999 mls/hr IV TITRATE CHARLES; 999 MUNITS/MIN PRN Reason: Protocol Stop: 04/15/17 04:31 Last Admin: 04/17/17 09:41 Dose: Not Given Ropivacaine (Naropin 0.2%) Confirm Administered Dose 100 mls @ as directed .ROUTE .STK-MED ONE Stop: 04/15/17 15:25 Last Admin: 04/15/17 15:53 Dose: Not Given Oxytocin/Lactated Ringer's (Pitocin In Lr 30 Units/500 Ml) Confirm Administered Dose 30 unit in 500 mls @ as directed .ROUTE .STK-MED ONE Stop: 04/15/17 17:02 Last Admin: 04/17/17 09:41 Dose: Not Given Ketamine HCl (Ketalar) Confirm Administered Dose 500 mg .ROUTE .STK-MED ONE Stop: 04/15/17 21:23 Ketorolac Tromethamine (Toradol) 30 mg IVPUSH Q6H CHARLES Stop: 04/16/17 22:01 Last Admin: 04/16/17 22:01 Dose: 30 mg Misoprostol (Cytotec) 25 mcg VAG Q4H PRN PRN Reason: Cervical Ripening Stop: 04/16/17 07:47 Last Admin: 04/15/17 12:45 Dose: 25 mcg Misoprostol (Cytotec) 25 mcg PO Q4H PRN PRN Reason: Cervical Ripening Stop: 04/16/17 07:49 Last Admin: 04/15/17 12:45 Dose: 25 mcg Morphine Sulfate (Duramorph Pf) Confirm Administered Dose 10 mg .ROUTE .STK-MED ONE Stop: 04/15/17 21:51 Nalbuphine HCl (Nubain) 10 mg IVPUSH Q1H PRN PRN Reason: Pain (severe 7-10) Stop: 04/15/17 04:47 Nalbuphine HCl (Nubain) 5 mg IVPUSH Q3H PRN PRN Reason: Pruritis Stop: 04/16/17 22:13 Naloxone HCl (Narcan) 0.1 mg IVPUSH ONETIME PRN PRN Reason: Respiratory Depression Stop: 04/16/17 22:13 Octyl Cyanoacrylate (Dermabond Advance) Confirm Administered Dose 1 applic .ROUTE .STK-MED ONE Stop: 04/15/17 21:49 Propofol (Diprivan 20 Ml) Confirm Administered Dose 200 mg .ROUTE .STK-MED ONE Stop: 04/15/17 21:16 Ropivacaine (Naropin 0.2%) Confirm Administered Dose 20 ml .ROUTE .STK-MED ONE Stop: 04/15/17 20:37 Last Admin: 04/17/17 09:41 Dose: Not Given - Exam General: Reports: Alert, Oriented, Cooperative, No Acute Distress Lungs: Reports: Clear to Auscultation, Normal Respiratory Effort Cardiovascular: Reports: Regular Rate, Regular Rhythm, No Murmurs GI/Abdominal Exam: Soft, Non-Tender, No Distention (Female) Exam: Vaginal Bleeding Rectal (Female) Exam: Deferred Back Exam: Reports: Full Range of Motion Extremities: Normal Range of Motion, Non-Tender, No Pedal Edema, Normal Capillary Refill Skin: Reports: Warm, Dry, Intact Wound/Incisions: Reports: Healing Well, No Drainage Neurological: Reports: No New Focal Deficit, Normal Gait, Normal Speech, Normal Tone Psy/Mental Status: Reports: Alert, Normal Affect, Normal Mood *Q Meaningful Use (DIS) - VTE *Q VTE Criteria *Q: - Stroke *Q Stroke Criteria *Q: - AMI *Q AMI Criteria *Q:
== END 2017-04-17 12:55 | disposition home or self-care (01) | DRG 766 ==
LOC: MW.OBCHECK 03:30 → MW.OB 03:30 → MW.OBCHECK 03:45 → MW.OB 03:46 → OBSVTOIN 21:54 → MW.OB 23:22
PROVIDERS: ADMIT Obstetrics & Gynecology; ATTEND Obstetrics & Gynecology
PROC: 10D00Z1 Extraction of Products of Conception, Low, Open Approach (ICD-10-PCS; principal; 2017-04-15)
PROC: 3E0P7GC Introduction of Other Therapeutic Substance into Female Reproductive, Via Natural or Artificial Opening (ICD-10-PCS; 2017-04-15)
DX: O48.0 Post-term pregnancy (principal); O32.4XX0 Maternal care for high head at term, not applicable or unspecified; Z3A.41 41 weeks gestation of pregnancy; Z37.0 Single live birth
CPT/HCPCS: 01967; 01968; 36415; 59025; 81001; 85014; 85018; 85025; 85027; 86850; 86900; 86901; A9270-GY; J1885; J2270; J2300; J2704; J3010; J7120

== ENCOUNTER 2020-03-20 08:40 | Inpatient (IN) | payer BC, MEDICAID, OTHER ==
--- NOTE | 2020-03-20 09:21 | PCM.LDHP ---
L&D History of Present Illness - General Date of Service: 03/20/20 Admit Problem/Dx: Patient Status Order with Admit Dx/Problem 03/20/20 08:33 Patient Status [ADT] Routine Admission Diagnosis/Problem Admission Diagnosis/Problem - planned Source of Information: Patient History Limitations: Reports: No Limitations - History of Present Illness Improves with: Reports: None Worsens with: Reports: None Associated Symptoms: Reports: N - Related Data Allergies/Adverse Reactions: Allergies Allergy/AdvReac Type Severity Reaction Status Date / Time No Known Allergies Allergy Verified 03/17/20 09:07 Home Medications: Home Meds Calcium Carbonate [Tums] 1 tab.chew CHEW ASDIRECTED PRN 03/17/20 [History] Past Medical History HEENT History: Reports: Impaired Vision Other HEENT History: wears glasses at times Cardiovascular History: Reports: None Respiratory History: Reports: None Gastrointestinal History: Reports: None Genitourinary History: Reports: None [employer]IAN History: Reports: , Other (See Below) Other OB/BYN History: HPV Musculoskeletal History: Reports: None Neurological History: Reports: Migraines Other Neuro History: states occas. 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, Human Papilloma Virus (HPV) - Past Surgical History Head Surgeries/Procedures: Reports: None HEENT Surgical History: Reports: None Cardiovascular Surgical History: Reports: None Respiratory Surgical History: Reports: None GI Surgical History: Reports: None Female Surgical History: Reports: Section, LEEP Endocrine Surgical History: Reports: None Oncologic Surgical History: Reports: None Social & Family History - Family History Family Medical History: Noncontributory HEENT: Reports: None Cardiac: Reports: None Respiratory: Reports: None GI: Reports: None : Reports: None OBGYN: Reports: Musculoskeletal: Reports: None Neurological: Reports: None Psychiatric: Reports: None Endocrine/Metabolic: Reports: Diabetes, type II Hematologic: Reports: None Immunologic: Reports: None Dermatologic: Reports: None Oncologic: Reports: None - Tobacco Use Smoking Status *Q: Never Smoker Second Hand Smoke Exposure: No - Caffeine Use Caffeine Use: Reports: Coffee - Recreational Drug Use Recreational Drug Use: No H&P Review of Systems - Review of Systems: Review Of Systems: See Below General: Reports: No Symptoms HEENT: Reports: No Symptoms Pulmonary: Reports: No Symptoms Cardiovascular: Reports: No Symptoms Gastrointestinal: Reports: No Symptoms Genitourinary: Reports: No Symptoms Musculoskeletal: Reports: No Symptoms Skin: Reports: No Symptoms Psychiatric: Reports: No Symptoms Neurological: Reports: No Symptoms Hematologic/Lymphatic: Reports: No Symptoms Immunologic: Reports: No Symptoms L&D Exam - Exam Exam: See Below - Vital Signs Weight: 68.492 kg - OB Specific Contraction Intensity: Mild to Moderate Movement: Active Heart Tones: Present Presentation: Vertex - Chan Score Chan Score Cervix Position: Midposition Chan Score Consistency: Soft Chan Score Effacement: 51-70% Chan Score Dilation: 3-4 cm Chan Score Infant's Station: -3 Chan Score Total: 7 - Exam General: Alert, Oriented HEENT: PERRLA, Conjunctiva Clear, EACs Clear, EOMI, Hearing Intact, Mucosa Moist & Urania, Nares Patent, Normal Nasal Septum, Posterior Pharynx Clear, TMs Clear Neck: Supple, Trachea Midline Lungs: Clear to Auscultation, Normal Respiratory Effort Cardiovascular: Regular Rate, Regular Rhythm GI/Abdominal Exam: Normal Bowel Sounds, Soft, Non-Tender, No Organomegaly, No Distention, No Abnormal Bruit, No Mass, Pelvis Stable Rectal Exam: Normal Exam, Normal Rectal Tone Genitourinary: Normal external exam, Normal bimanual exam, Normal speculum exam Back Exam: Normal Inspection, Full Range of Motion Extremities: Normal Inspection, Normal Range of Motion, Non-Tender, No Pedal Edema, Normal Capillary Refill Skin: Warm, Dry, Intact Neurological: Cranial Nerves Intact, Reflexes Equal Bilateral Psychiatric: Alert, Normal Affect, Normal Mood Problem List Initiated/Reviewed/Updated: Yes Orders Last 24hrs: Active Orders 24 hr Category Date Time Status Patient Status [ADT] Routine ADT 03/20/20 08:33 Active Non Stress Test [RC] PER UNIT ROUTINE Care 03/20/20 08:42 Active Up ad Ruth [RC] ASDIRECTED Care 03/20/20 08:42 Active Vaginal Exam [RC] Click to Edit Care 03/20/20 08:42 Active Vital Signs [RC] PER UNIT ROUTINE Care 03/20/20 08:42 Active Resuscitation Status Routine Resus Stat 03/20/20 08:42 Ordered Assessment/Plan Comment:: IUP 38+5 prvious C/section in active labor. Pt was schedule for elective repeat C/section on .
[2020-03-20] MEDS ORDERED: Sodium Chloride 0.9% 10 ML Syringe FLUSH PRN (09:23)
[2020-03-20] MEDS ORDERED: Sodium Chloride 0.9% 10 ML SDV IV PRN (09:23)
[2020-03-20] MEDS ORDERED: Citric Acid/Sodium Citrate Solution 30 ML Cup PO ONE (09:23)
[2020-03-20] MEDS ORDERED: Sodium Chloride 0.9% 2.5 ML Syringe FLUSH PRN (09:23)
[2020-03-20] MEDS ORDERED: Lactated Ringers 1,000 ML IV SCH (09:30)
[2020-03-20] MEDS ORDERED: Oxytocin/0.9 % Sodium Chloride 30 UNIT/500 ML BAG IV SCH (09:30)
[2020-03-20] MEDS ORDERED: Citric Acid/Sodium Citrate Solution 30 ML Cup ONE (09:36)
[2020-03-20] MEDS ORDERED: Morphine PF 10 MG/10 ML SDV ONE (09:39)
[2020-03-20] MEDS ORDERED: Phenylephrine 1% 10 MG/ML SDV ONE (09:46)
[2020-03-20] MEDS ORDERED: Oxytocin 10 Units/1 ML SDV ONE (09:49)
[2020-03-20] MEDS ORDERED: Sodium Chloride 0.9% 20 ML ONE (09:49)
[2020-03-20] MEDS ORDERED: ceFAZolin 1 GM Vial ONE (09:49)
[2020-03-20] MEDS ORDERED: diphenhydrAMINE 50 MG/ML SDV IVPUSH PRN ×2 (09:54→10:40)
[2020-03-20] MEDS ORDERED: Ondansetron 4 MG/2 ML SDV IVPUSH PRN ×2 (09:54→10:40)
[2020-03-20] MEDS ORDERED: Nalbuphine 10 MG/1 ML Vial IVPUSH PRN (09:54)
[2020-03-20] MEDS ORDERED: fentaNYL 100 MCG/2 ML SDV IVPUSH PRN ×2 (09:54→10:47)
[2020-03-20] MEDS ORDERED: Naloxone 0.4 MG/ML Syringe IVPUSH PRN (09:54)
[2020-03-20] MEDS ORDERED: Acetaminophen/oxyCODONE 325-5 MG Tab PO PRN ×3 (09:54→10:40)
--- NOTE | 2020-03-20 09:54 | PCM.PREANE ---
Preanesthetic Assessment - Anesthesia/Transfusion/Family Hx Anesthesia History: Prior Anesthesia Without Reaction Family History of Anesthesia Reaction: No Transfusion History: No Prior Transfusion(s) Intubation History: Unknown - Review of Systems General: No Symptoms Pulmonary: No Symptoms Cardiovascular: No Symptoms Gastrointestinal: No Symptoms Neurological: No Symptoms Other: Reports: None - Physical Assessment Height: 5 ft 5 in Weight: 68.492 kg ASA Class: 2 Mental Status: Alert & Oriented x3 Airway Class: Mallampati = 2 Dentition: Reports: Normal Dentition Thyro-Mental Finger Breadths: 3 Mouth Opening Finger Breadths: 3 ROM/Head Extension: Full Lungs: Clear to Auscultation, Normal Respiratory Effort Cardiovascular: Regular Rate, Regular Rhythm - Lab Values: Laboratory Last Values WBC 15.91 K/uL (4.0-11.0) H 03/20/20 09:10 RBC 4.65 M/uL (4.30-5.90) 03/20/20 09:10 Hgb 13.2 g/dL (12.0-16.0) 03/20/20 09:10 Hct 40.5 % (36.0-46.0) 03/20/20 09:10 MCV 87.1 fL (80.0-98.0) 03/20/20 09:10 MCH 28.4 pg (27.0-32.0) 03/20/20 09:10 MCHC 32.6 g/dL (31.0-37.0) 03/20/20 09:10 RDW Std Deviation 44.3 fl (28.0-62.0) 03/20/20 09:10 RDW Coeff of Piyush 14 % (11.0-15.0) 03/20/20 09:10 Plt Count 190 K/uL (150-400) 03/20/20 09:10 MPV 11.10 fL (7.40-12.00) 03/20/20 09:10 Nucleated RBC % 0.0 /100WBC 03/20/20 09:10 Nucleated RBCs # 0 K/uL 03/20/20 09:10 COVID-19 (JANET) NEGATIVE (NEGATIVE) 03/20/20 08:58 - Allergies Allergies/Adverse Reactions: Allergies Allergy/AdvReac Type Severity Reaction Status Date / Time No Known Allergies Allergy Verified 03/17/20 09:07 - Blood Blood Available: No - Anesthesia Plan Pre-Op Medication Ordered: None - Acknowledgements Anesthesia Type Planned: Spinal (general anesthesia back-up plan) Pt an Appropriate Candidate for the Planned Anesthesia: Yes Alternatives and Risks of Anesthesia Discussed w Pt/Guardian: Yes Pt/Guardian Understands and Agrees with Anesthesia Plan: Yes PreAnesthesia Questionnaire HEENT History: Reports: Impaired Vision Other HEENT History: wears glasses at times Cardiovascular History: Reports: None Respiratory History: Reports: None Gastrointestinal History: Reports: None Genitourinary History: Reports: None [employer] History: Reports: , Other (See Below) Other OB/BYN History: HPV Musculoskeletal History: Reports: None Neurological History: Reports: Migraines Other Neuro History: states occas. 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, Human Papilloma Virus (HPV) - Past Surgical History Head Surgeries/Procedures: Reports: None HEENT Surgical History: Reports: None Cardiovascular Surgical History: Reports: None Respiratory Surgical History: Reports: None GI Surgical History: Reports: None Female Surgical History: Reports: Section, LEEP Endocrine Surgical History: Reports: None Oncologic Surgical History: Reports: None - SUBSTANCE USE Smoking Status *Q: Never Smoker Second Hand Smoke Exposure: No Recreational Drug Use History: No - HOME MEDS Home Medications: Home Meds Calcium Carbonate [Tums] 1 tab.chew CHEW ASDIRECTED PRN 03/17/20 [History] - CURRENT (IN HOUSE) MEDS Current Meds: Current Medications Lactated Ringer's (Ringers, Lactated) 1,000 mls @ 500 mls/hr IV BOLUS CHARLES Oxytocin/Sodium Chloride (Oxytocin 30 Unit/500 Ml-Ns) 30 unit in 500 mls @ 250 mls/hr IV TITRATE CHARLES Sodium Chloride (Saline Flush) 10 ml FLUSH ASDIRECTED PRN PRN Reason: Keep Vein Open Sodium Chloride (Saline Flush) 2.5 ml FLUSH ASDIRECTED PRN PRN Reason: Keep Vein Open Sodium Chloride (Normal Saline) 10 ml IV ASDIRECTED PRN PRN Reason: IV Use Discontinued Medications Cefazolin Sodium (Ancef) Confirm Administered Dose 2 gm .ROUTE .STK-MED ONE Stop: 03/20/20 09:50 Citric Acid/Sodium Citrate (Bicitra Solution) 30 ml PO ONETIME ONE Stop: 03/20/20 09:24 Citric Acid/Sodium Citrate (Bicitra Solution) Confirm Administered Dose 30 ml .ROUTE .STK-MED ONE Stop: 03/20/20 09:37 Sodium Chloride (Normal Saline) Confirm Administered Dose 20 mls @ as directed .ROUTE .STK-MED ONE Stop: 03/20/20 09:50 Morphine Sulfate (Duramorph Pf) Confirm Administered Dose 10 mg .ROUTE .STK-MED ONE Stop: 03/20/20 09:40 Oxytocin (Pitocin) Confirm Administered Dose 20 unit .ROUTE .STK-MED ONE Stop: 03/20/20 09:50 Phenylephrine HCl (Juan J-Synephrine) Confirm Administered Dose 10 mg .ROUTE .STK- MED ONE Stop: 03/20/20 09:47
[2020-03-20] MEDS ORDERED: Octyl 2-Cyanoacrylate 1 Tube ONE (10:38)
[2020-03-20] MEDS ORDERED: Bisacodyl 10 MG Supp RECTAL PRN (10:40)
[2020-03-20] MEDS ORDERED: Misoprostol 200 MCG Tab RECTAL PRN (10:40)
[2020-03-20] MEDS ORDERED: Oxytocin 10 Units/1 ML SDV IM PRN (10:40)
[2020-03-20] MEDS ORDERED: Tranexamic Acid 1,000 MG in Sodium Chloride 0.9% 100 ML IV PRN (10:40)
[2020-03-20] MEDS ORDERED: Lanolin 100% Cream 7 GM Tube TOP PRN (10:40)
[2020-03-20] MEDS ORDERED: Methylergonovine 0.2 MG/1 ML Amp IM PRN (10:40)
--- NOTE | 2020-03-20 10:44 | PCM.OPNOTE ---
- General Post-Op/Procedure Note Date of Surgery/Procedure: 03/20/20 Operative Procedure(s): Repeat C/section. Pre Op Diagnosis: [id number] previous C/section. Post-Op Diagnosis: Same Anesthesia Technique: Spinal Primary Surgeon: Jeffrey Randolph Cook Vegetable: Waleska Arnett EBL in mLs: 600 Complications: None Condition: Good
--- NOTE | 2020-03-20 11:34 | PCM.POSTAN ---
POST ANESTHESIA ASSESSMENT - MENTAL STATUS Mental Status: Alert - RESPIRATORY Respiratory Status: Respiratory Rate WNL - CARDIOVASCULAR CV Status: Pulse Rate WNL - GASTROINTESTINAL GI Status: No Symptoms - POST OP HYDRATION Hydration Status: Adequate & Stable
[2020-03-20] MEDS: Lactated Ringers 1,000 ML IV SCH ×2 (12:22→20:19)
[2020-03-20] MEDS: Ketorolac 30 MG/ML SDV IVPUSH SCH ×3 (14:10→23:18)
[2020-03-21] MEDS: Ketorolac 30 MG/ML SDV IVPUSH SCH ×2 (05:25→11:05)
--- NOTE | 2020-03-21 08:00 | PCM48HPAN ---
Post Anesthesia Note - EVALUATION WITHIN 48HRS OF ANESTHETIC Vital Signs in Normal Range: Yes Patient Participated in Evaluation: Yes Respiratory Function Stable: Yes Airway Patent: Yes Cardiovascular Function Stable: Yes Hydration Status Stable: Yes Pain Control Satisfactory: Yes Nausea and Vomiting Control Satisfactory: Yes Mental Status Recovered: Yes Vital Signs: Last Vital Signs Temp 36.7 C 03/21/20 04:00 Pulse 85 03/21/20 04:00 Resp 16 03/21/20 05:00 BP 100/62 03/21/20 04:00 Pulse Ox 95 03/21/20 05:00 - COMMENTS/OBSERVATIONS Free Text/Narrative:: Pt resting in bed, reports adequate pain control, ambulating without difficulty, reports full return of sensation and strength to BLE.
--- NOTE | 2020-03-21 08:42 | PCM.SURGPN ---
- General Info Date of Service: 03/21/20 POD#: 1 Functional Status: Reports: Pain Controlled - Review of Systems General: Reports: No Symptoms HEENT: Reports: No Symptoms Pulmonary: Reports: No Symptoms Cardiovascular: Reports: No Symptoms Gastrointestinal: Reports: No Symptoms Genitourinary: Reports: No Symptoms Musculoskeletal: Reports: No Symptoms Skin: Reports: No Symptoms Neurological: Reports: No Symptoms Psychiatric: Reports: No Symptoms - Patient Data Vitals - Most Recent: Last Vital Signs Temp 36.7 C 03/21/20 04:00 Pulse 85 03/21/20 04:00 Resp 16 03/21/20 05:00 BP 100/62 03/21/20 04:00 Pulse Ox 95 03/21/20 05:00 Weight - Most Recent: 68.492 kg I&O - Last 24 Hours: Intake & Output 03/20/20 03/21/20 03/21/20 22:59 06:59 14:59 Intake Total 1725 Output Total 800 1400 Balance -800 325 Lab Results Last 24 Hrs: Laboratory Results - last 24 hr 03/20/20 03/20/20 03/20/20 Range/Units 08:58 09:10 09:40 WBC 15.91 H (4.0-11.0) K/uL RBC 4.65 (4.30-5.90) M/uL Hgb 13.2 (12.0-16.0) g/dL Hct 40.5 (36.0-46.0) % MCV 87.1 (80.0-98.0) fL MCH 28.4 (27.0-32.0) pg MCHC 32.6 (31.0-37.0) g/dL RDW Std Deviation 44.3 (28.0-62.0) fl RDW Coeff of Piyush 14 (11.0-15.0) % Plt Count 190 (150-400) K/uL MPV 11.10 (7.40-12.00) fL Nucleated RBC % 0.0 /100WBC Nucleated RBCs # 0 K/uL COVID-19 (JANET) NEGATIVE (NEGATIVE) Blood Type A POSITIVE Antibody Screen NEGATIVE 03/21/20 Range/Units 05:50 WBC (4.0-11.0) K/uL RBC (4.30-5.90) M/uL Hgb 10.9 L (12.0-16.0) g/dL Hct 33.3 L (36.0-46.0) % MCV (80.0-98.0) fL MCH (27.0-32.0) pg MCHC (31.0-37.0) g/dL RDW Std Deviation (28.0-62.0) fl RDW Coeff of Piyush (11.0-15.0) % Plt Count (150-400) K/uL MPV (7.40-12.00) fL Nucleated RBC % /100WBC Nucleated RBCs # K/uL COVID-19 (JANET) (NEGATIVE) Blood Type Antibody Screen Med Orders - Current: Current Medications Bisacodyl (Dulcolax) 10 mg RECTAL ONETIME PRN PRN Reason: Constipation Diphenhydramine HCl (Benadryl) 25 mg IVPUSH Q6H PRN PRN Reason: Itching or Nausea Docusate Sodium (Colace) 100 mg PO BID [facility] Emollient Ointment (Lansinoh Hpa) 0 gm TOP ASDIRECTED PRN PRN Reason: Sore Nipples Fentanyl (Sublimaze) 50 - 100 mcg IVPUSH Q30M PRN PRN Reason: Pain (severe 7-10) Lactated Ringer's (Ringers, Lactated) 1,000 mls @ 500 mls/hr IV BOLUS [facility] Oxytocin/Sodium Chloride (Oxytocin 30 Unit/500 Ml-Ns) 30 unit in 500 mls @ 250 mls/hr IV TITRATE [facility] Lactated Ringer's (Ringers, Lactated) 1,000 mls @ 125 mls/hr IV ASDIRECTED [facility] Last Admin: 03/20/20 20:19 Dose: 125 mls/hr Documented by: Tranexamic Acid 1,000 mg/ (Sodium Chloride) 110 mls @ 660 mls/hr IV ONETIME PRN PRN Reason: Bleeding Ibuprofen (Motrin) 800 mg PO Q8H PRN PRN Reason: mild pain or fever Ketorolac Tromethamine (Toradol) 30 mg IVPUSH Q6H [facility] Stop: 03/21/20 10:46 Last Admin: 03/21/20 05:25 Dose: 30 mg Documented by: Methylergonovine Maleate (Methergine) 0.2 mg IM ONETIME PRN PRN Reason: Excessive Vaginal Bleeding Misoprostol (Cytotec) 1,000 mcg RECTAL ONETIME PRN PRN Reason: excessive bleeding Nalbuphine HCl (Nubain) 5 mg IVPUSH ASDIRECTED PRN PRN Reason: Itching Naloxone HCl (Narcan) 0.1 mg IVPUSH ONETIME PRN PRN Reason: Respiratory Depression Stop: 03/21/20 09:54 Ondansetron HCl (Zofran) 4 mg IVPUSH Q4H PRN PRN Reason: Nausea/Vomiting Oxycodone/Acetaminophen (Percocet 325-5 Mg) 1 tab PO Q4H PRN PRN Reason: Pain (moderate 4-6) Oxycodone/Acetaminophen (Percocet 325-5 Mg) 2 tab PO Q4H PRN PRN Reason: Pain (moderate 4-6) Oxytocin (Pitocin) 10 unit IM ASDIRECTED PRN PRN Reason: Excessive Vaginal Bleeding Sodium Chloride (Saline Flush) 10 ml FLUSH ASDIRECTED PRN PRN Reason: Keep Vein Open Sodium Chloride (Saline Flush) 2.5 ml FLUSH ASDIRECTED PRN PRN Reason: Keep Vein Open Sodium Chloride (Normal Saline) 10 ml IV ASDIRECTED PRN PRN Reason: IV Use Discontinued Medications Cefazolin Sodium (Ancef) Confirm Administered Dose 2 gm .ROUTE .STK-MED ONE Stop: 03/20/20 09:50 Citric Acid/Sodium Citrate (Bicitra Solution) 30 ml PO ONETIME ONE Stop: 03/20/20 09:24 Citric Acid/Sodium Citrate (Bicitra Solution) Confirm Administered Dose 30 ml .ROUTE .STK-MED ONE Stop: 03/20/20 09:37 Last Admin: 03/21/20 07:59 Dose: Not Given Documented by: Diphenhydramine HCl (Benadryl) 25 mg IVPUSH Q4H PRN PRN Reason: Itching Stop: 03/21/20 09:54 Fentanyl (Sublimaze) 50 mcg IVPUSH Q1H PRN PRN Reason: Pain (severe 7-10) Sodium Chloride (Normal Saline) Confirm Administered Dose 20 mls @ as directed .ROUTE .STK-MED ONE Stop: 03/20/20 09:50 Morphine Sulfate (Duramorph Pf) Confirm Administered Dose 10 mg .ROUTE .STK-MED ONE Stop: 03/20/20 09:40 Octyl Cyanoacrylate (Dermabond Advance) Confirm Administered Dose 1 applic .ROUTE .STK-MED ONE Stop: 03/20/20 10:39 Last Admin: 03/21/20 07:59 Dose: Not Given Documented by: Ondansetron HCl (Zofran) 4 mg IVPUSH Q6H PRN PRN Reason: Nausea Oxycodone/Acetaminophen (Percocet 325-5 Mg) 2 tab PO Q6H PRN PRN Reason: Pain (moderate 4-6) Oxycodone/Acetaminophen (Percocet 325-5 Mg) 2 tab PO Q6H PRN PRN Reason: Pain (moderate 4-6) Oxytocin (Pitocin) Confirm Administered Dose 20 unit .ROUTE .STK-MED ONE Stop: 03/20/20 09:50 Phenylephrine HCl (Juan J-Synephrine) Confirm Administered Dose 10 mg .ROUTE .STK- MED ONE Stop: 03/20/20 09:47 - Exam Wound/Incisions: Healing Well General: Alert, Oriented HEENT: Pupils Equal Neck: Supple Lungs: Clear to Auscultation, Normal Respiratory Effort Cardiovascular: Regular Rate, Regular Rhythm GI/Abdominal Exam: Normal Bowel Sounds, Soft, Non-Tender, No Organomegaly, No Distention, No Abnormal Bruit, No Mass, Pelvis Stable Extremities: Normal Inspection, Normal Range of Motion, Non-Tender, No Pedal Edema, Normal Capillary Refill Skin: Warm, Dry, Intact Neurological: No New Focal Deficit Psy/Mental Status: Alert, Normal Affect, Normal Mood Sepsis Event Note - Evaluation Sepsis Screening Result: No Definite Risk - Focused Exam Vital Signs: Vital Signs Temp Pulse Resp BP Pulse Ox 03/21/20 05:00 16 95 03/21/20 04:00 36.7 C 85 15 100/62 96 03/20/20 23:53 36.6 C 84 15 99/55 L 93 L 03/20/20 23:00 16 96 03/20/20 22:00 84 16 96 03/20/20 21:00 87 16 95 Date Exam was Performed: 03/21/20 Time Exam was Performed: 08:41 - Problem List Review Problem List Initiated/Reviewed/Updated: Yes - My Orders Last 24 Hours: Active Orders 24 hr Category Date Time Status Patient Status [ADT] Routine ADT 03/20/20 10:40 Active Ambulate [RC] PER UNIT ROUTINE Care 03/20/20 10:40 Active Antiembolic Devices [RC] PER UNIT ROUTINE Care 03/20/20 10:41 Active Bradycardia-Neuroaxis [employer] [RC] ROUTINE Care 03/20/20 09:54 Active Communication Order [RC] PER UNIT ROUTINE Care 03/20/20 10:40 Active Communication Order [RC] PER UNIT ROUTINE Care 03/20/20 10:40 Active Communication Order [RC] Per Unit Routine Care 03/20/20 10:40 Active Hypertension-Neuroaxis [employer] [RC] ROUTINE Care 03/20/20 09:54 Active Hypotension-Neuroaxis [employer] [RC] ROUTINE Care 03/20/20 09:54 Active May Shower [RC] ASDIRECTED Care 03/20/20 10:40 Active Notify Provider Vital Signs [RC] PRN Care 03/20/20 09:25 Active Oxygen Therapy [RC] PER UNIT ROUTINE Care 03/20/20 09:54 Active RT Incentive Spirometry [RC] Q2HWA Care 03/20/20 10:40 Active Up ad Ruth [RC] ASDIRECTED Care 03/20/20 09:23 Active Verify Patient Consent Obtain [RC] ASDIRECTED Care 03/20/20 09:23 Active Vital Signs [RC] PER UNIT ROUTINE Care 03/20/20 08:42 Active Vital Signs [RC] Q1H Care 03/20/20 09:54 Active RPR (SYPHILIS SERO) W/ RFLX [REF] Routine Lab 03/20/20 09:40 Received Acetaminophen/oxyCODONE [Percocet 325-5 MG] Med 03/20/20 10:40 Active 1 tab PO Q4H PRN Acetaminophen/oxyCODONE [Percocet 325-5 MG] Med 03/20/20 10:40 Active 2 tab PO Q4H PRN Docusate Sodium [Colace] Med 03/20/20 21:00 Active 100 mg PO BID Ibuprofen [Motrin] Med 03/20/20 10:40 Active 800 mg PO Q8H PRN Ketorolac [Toradol] Med 03/20/20 10:45 Active 30 mg IVPUSH Q6H Lactated Ringers [Ringers, Lactated] 1,000 ml Med 03/20/20 10:45 Active IV ASDIRECTED Lactated Ringers [Ringers, Lactated] 1,000 ml Med 03/20/20 09:30 Active IV BOLUS Lanolin [Lansinoh HPA] Med 03/20/20 10:40 Active See Dose Instructions TOP ASDIRECTED PRN Methylergonovine [Methergine] Med 03/20/20 10:40 Active 0.2 mg IM ONETIME PRN Nalbuphine [Nubain] Med 03/20/20 09:54 Active 5 mg IVPUSH ASDIRECTED PRN Naloxone [Narcan] Med 03/20/20 09:54 Active 0.1 mg IVPUSH ONETIME PRN Ondansetron [Zofran] Med 03/20/20 10:40 Active 4 mg IVPUSH Q4H PRN Oxytocin [Pitocin] Med 03/20/20 10:40 Active 10 unit IM ASDIRECTED PRN Oxytocin/0.9 % Sodium Chloride [Oxytocin 30 Unit/500 ML Med 03/20/20 09:30 Active -NS] 30 unit in 500 ml IV TITRATE Sodium Chloride 0.9% [Normal Saline] Med 03/20/20 09:23 Active 10 ml IV ASDIRECTED PRN Sodium Chloride 0.9% [Saline Flush] Med 03/20/20 09:23 Active 10 ml FLUSH ASDIRECTED PRN Sodium Chloride 0.9% [Saline Flush] Med 03/20/20 09:23 Active 2.5 ml FLUSH ASDIRECTED PRN Tranexamic Acid [Cyklokapron] 1,000 mg Med 03/20/20 10:40 Active Sodium Chloride 0.9% [Normal Saline] 100 ml IV ONETIME bisacodyL [Dulcolax] Med 03/20/20 10:40 Active 10 mg RECTAL ONETIME PRN diphenhydrAMINE [Benadryl] Med 03/20/20 10:40 Active 25 mg IVPUSH Q6H PRN fentaNYL [Sublimaze] Med 03/20/20 10:47 Active 50 - 100 mcg IVPUSH Q30M PRN miSOPROStoL [Cytotec] Med 03/20/20 10:40 Active 1,000 mcg RECTAL ONETIME PRN Assess Lochia [WOMSER] Per Unit Routine Oth 03/20/20 10:40 Ordered Assess Uterine Involution [WOMSER] Per Unit Routine Oth 03/20/20 10:40 Ordered Breast Pump [WOMSER] Per Unit Routine Oth 03/20/20 10:40 Ordered Peripheral IV Discontinue [OM.PC] Routine Oth 03/20/20 10:40 Ordered Peripheral IV Insertion Adult [OM.PC] Routine Ot 03/20/20 09:23 Ordered Schedule Procedure [COMM] Per Unit Routine Oth 03/20/20 09:23 Ordered Sequential Compression Device [OM.PC] Per Unit Routine Oth 03/20/20 10:40 Ordered Resuscitation Status Routine Resus Stat 03/20/20 08:42 Ordered Medication Orders Bisacodyl (Dulcolax) 10 mg RECTAL ONETIME PRN PRN Reason: Constipation Diphenhydramine HCl (Benadryl) 25 mg IVPUSH Q6H PRN PRN Reason: Itching or Nausea Docusate Sodium (Colace) 100 mg PO BID [facility] Emollient Ointment (Lansinoh Hpa) 0 gm TOP ASDIRECTED PRN PRN Reason: Sore Nipples Fentanyl (Sublimaze) 50 - 100 mcg IVPUSH Q30M PRN PRN Reason: Pain (severe 7-10) Lactated Ringer's (Ringers, Lactated) 1,000 mls @ 500 mls/hr IV BOLUS [facility] Oxytocin/Sodium Chloride (Oxytocin 30 Unit/500 Ml-Ns) 30 unit in 500 mls @ 250 mls/hr IV TITRATE [facility] Lactated Ringer's (Ringers, Lactated) 1,000 mls @ 125 mls/hr IV ASDIRECTED [facility] Last Admin: 03/20/20 20:19 Dose: 125 mls/hr Documented by: Infusion: 03/20/20 20:19 Dose: 125 mls/hr Documented by: Admin: 03/20/20 12:22 Dose: 125 mls/hr Documented by: BITA Tranexamic Acid 1,000 mg/ (Sodium Chloride) 110 mls @ 660 mls/hr IV ONETIME PRN PRN Reason: Bleeding Ibuprofen (Motrin) 800 mg PO Q8H PRN PRN Reason: mild pain or fever Ketorolac Tromethamine (Toradol) 30 mg IVPUSH Q6H [facility] Stop: 03/21/20 10:46 Last Admin: 03/21/20 05:25 Dose: 30 mg Documented by: Admin: 03/20/20 23:18 Dose: 30 mg Documented by: Admin: 03/20/20 17:06 Dose: 30 mg Documented by: Admin: 03/20/20 14:10 Dose: Not Given Documented by: BITA Methylergonovine Maleate (Methergine) 0.2 mg IM ONETIME PRN PRN Reason: Excessive Vaginal Bleeding Misoprostol (Cytotec) 1,000 mcg RECTAL ONETIME PRN PRN Reason: excessive bleeding Nalbuphine HCl (Nubain) 5 mg IVPUSH ASDIRECTED PRN PRN Reason: Itching Naloxone HCl (Narcan) 0.1 mg IVPUSH ONETIME PRN PRN Reason: Respiratory Depression Stop: 03/21/20 09:54 Ondansetron HCl (Zofran) 4 mg IVPUSH Q4H PRN PRN Reason: Nausea/Vomiting Oxycodone/Acetaminophen (Percocet 325-5 Mg) 1 tab PO Q4H PRN PRN Reason: Pain (moderate 4-6) Oxycodone/Acetaminophen (Percocet 325-5 Mg) 2 tab PO Q4H PRN PRN Reason: Pain (moderate 4-6) Oxytocin (Pitocin) 10 unit IM ASDIRECTED PRN PRN Reason: Excessive Vaginal Bleeding Sodium Chloride (Saline Flush) 10 ml FLUSH ASDIRECTED PRN PRN Reason: Keep Vein Open Sodium Chloride (Saline Flush) 2.5 ml FLUSH ASDIRECTED PRN PRN Reason: Keep Vein Open Sodium Chloride (Normal Saline) 10 ml IV ASDIRECTED PRN PRN Reason: IV Use - Assessment Assessment (Free Text/Narrative):: Status post section postoperative day #1 the incision in the clean dry she is on regular diet which he underwent A the Rascon catheter was removed and she is voiding without any problem. Her pain is under control we are planning to send her in a.m.
[2020-03-21] MEDS: Docusate Sodium 100 MG Cap PO SCH ×3 (08:47→21:47)
--- NOTE | 2020-03-21 13:29 | OR ---
SURGEON: Jeffrey Randolph MD DATE OF PROCEDURE: 03/20/2020 PREOPERATIVE DIAGNOSES: 1. Intrauterine 38 plus 5. 2. Previous section. 3. In active labor. POSTOPERATIVE DIAGNOSES: 1. Intrauterine 38 plus 5. 2. Previous section. 3. In active labor. OPERATION PERFORMED: Repeat low transverse section. OUTSIDE OPERATOR: Waleska Arnett CNM ANESTHESIA: Spinal, Rangel and Dr. Hopper. ESTIMATED BLOOD LOSS: 600 mL. COMPLICATIONS: None. HUMAN RESOURCES EXECUTIVE: Dr. Trevino. FINDINGS: Male fetus. scores reported to be 8 and 9. The weight is not available. INDICATIONS FOR SURGERY: This patient is 29. She had a previous section. She is scheduled for elective repeat section next week on . However, today, she presented into Labor and Delivery with active contraction and she is dilated to 3 cm to 4 cm. A decision was made to repeat her section today. PROCEDURE IN DETAIL: The patient was brought to the OR, properly identified, and after adequate level of spinal anesthesia with a Rascon catheter in the bladder, the patient was prepped and draped in sterile fashion as usual, and after taking time-out and re- identifying the patient, low transverse Pfannenstiel skin incision through the old scar was done. Yelena fascia and rectus fascia were opened in direction of the incision. The 2 recti muscles , and peritoneal cavity was entered. Low transverse uterine incision was done, extended manually with hand. Fetus was in vertex position, delivered without any problem, and cried immediately. Two nuchal cord were noted at the time of the delivery. score reported to be 8 and 9. The weight was not available. The fetus was handed to the resuscitating team, and then the placenta delivered spontaneous, complete, and intact without any problem, and then repair of the lower uterine segment was done with 2-0 Vicryl continuous interlocking in 2 layers. Peritoneal cavity evacuated completely from all blood and blood clot and closed with 3-0 Vicryl continuous. The rectus fascia was closed with #1 PDS single strand continuous. Yelena fascia with 3-0 Vicryl continuous. The skin was closed with Stratafix in a subcuticular fashion. Instrument and sponge count were correct. The patient tolerated the procedure well, went to recovery room in stable general condition. TAMMI / RAMU /[id number]
[2020-03-21] MEDS: Acetaminophen/oxyCODONE 325-5 MG Tab PO PRN ×3 (15:03→23:27)
[2020-03-21] MEDS: Ibuprofen 800 MG Tab PO PRN (17:33)
[2020-03-22] MEDS: Ibuprofen 800 MG Tab PO PRN ×2 (02:40→10:35)
[2020-03-22] MEDS: Acetaminophen/oxyCODONE 325-5 MG Tab PO PRN ×2 (05:50→10:36)
--- NOTE | 2020-03-22 07:47 | PCM.DCSUM1 ---
Discharge Summary - Hospital Course Free Text/Narrative:: Discharge home with baby. Follow up in the clinic in one week for postop/incision check. Follow up again in the clinic in 6 weeks weeks for routine visit. Diagnosis: Stroke: No Modified Rosaline Scale: No Symptoms at All Modified Jefferson Scale Score: 0 - Discharge Data Discharge Date: 03/22/20 Discharge Disposition: Home, Self-Care 01 Condition: Good - Referral to Home Health Primary Care Physician: PCP None - Patient Summary/Data Operative Procedure(s) Performed: Repeat C/section. - Patient Instructions Diet: Regular Diet as Tolerated, Drink 8-10+ Glasses/Day Activity: As Tolerated, No Strenuous Activities, Rest and Relax Today Driving: Do Not Drive Showering/Bathing: May Shower Wound/Incision Care: Keep Operative Site/Wound Site Clean and Dry Notify Provider of: Fever, Increased Pain, Swelling and Redness, Drainage, Nausea and/or Vomiting - Discharge Plan *PRESCRIPTION DRUG MONITORING PROGRAM REVIEWED*: Not Applicable *COPY OF PRESCRIPTION DRUG MONITORING REPORT IN PATIENT SAMUEL: Not Applicable Prescriptions/Med Rec: Ibuprofen [Motrin] 800 mg PO Q8H PRN 2 Days #90 tablet PRN Reason: mild pain or fever Acetaminophen/oxyCODONE [Percocet 325-5 MG] 1 - 2 tab PO Q6HR PRN #24 tablet PRN Reason: Pain (Moderate 4-6) Home Medications: Home Meds Calcium Carbonate [Tums] 1 tab.chew CHEW ASDIRECTED PRN 03/17/20 [History] Acetaminophen/oxyCODONE [Percocet 325-5 MG] 1 - 2 tab PO Q6HR PRN #24 tablet 03/22/20 [Rx] Ibuprofen [Motrin] 800 mg PO Q8H PRN 2 Days #90 tablet 03/22/20 [Rx] Oxygen Therapy Mode: Room Air Referrals: [facility] [Outside] Jeffrey Randolph MD [Physician] - (1 week- April 04@3:00pm w/ 6 week- May 02@1:30pm w/ ) - Discharge Summary/Plan Comment DC Time >30 min.: Yes - General Info Date of Service: 03/22/20 Admission Dx/Problem (Free Text: Patient Status Order with Admit Dx/Problem 03/20/20 08:33 Patient Status [ADT] Routine Admission Diagnosis/Problem Admission Diagnosis/Problem - planned Functional Status: Reports: Pain Controlled, Tolerating Diet, Ambulating, Urinating - Review of Systems General: Reports: No Symptoms HEENT: Reports: No Symptoms Pulmonary: Reports: No Symptoms Cardiovascular: Reports: No Symptoms Gastrointestinal: Reports: No Symptoms Genitourinary: Reports: No Symptoms Musculoskeletal: Reports: No Symptoms Skin: Reports: No Symptoms Neurological: Reports: No Symptoms Psychiatric: Reports: No Symptoms - Patient Data Vitals - Most Recent: Last Vital Signs Temp 97.3 F 03/22/20 03:49 Pulse 77 03/22/20 03:49 Resp 14 03/22/20 03:49 BP 92/52 L 03/22/20 03:49 Pulse Ox 95 03/22/20 03:49 Weight - Most Recent: 151 lb Med Orders - Current: Current Medications Bisacodyl (Dulcolax) 10 mg RECTAL ONETIME PRN PRN Reason: Constipation Diphenhydramine HCl (Benadryl) 25 mg IVPUSH Q6H PRN PRN Reason: Itching or Nausea Docusate Sodium (Colace) 100 mg PO BID [facility] Last Admin: 03/21/20 21:47 Dose: 100 mg Documented by: Emollient Ointment (Lansinoh Hpa) 0 gm TOP ASDIRECTED PRN PRN Reason: Sore Nipples Fentanyl (Sublimaze) 50 - 100 mcg IVPUSH Q30M PRN PRN Reason: Pain (severe 7-10) Lactated Ringer's (Ringers, Lactated) 1,000 mls @ 500 mls/hr IV BOLUS [facility] Oxytocin/Sodium Chloride (Oxytocin 30 Unit/500 Ml-Ns) 30 unit in 500 mls @ 250 mls/hr IV TITRATE [facility] Lactated Ringer's (Ringers, Lactated) 1,000 mls @ 125 mls/hr IV ASDIRECTED [facility] Last Admin: 03/20/20 20:19 Dose: 125 mls/hr Documented by: Tranexamic Acid 1,000 mg/ (Sodium Chloride) 110 mls @ 660 mls/hr IV ONETIME PRN PRN Reason: Bleeding Ibuprofen (Motrin) 800 mg PO Q8H PRN PRN Reason: mild pain or fever Last Admin: 03/22/20 02:40 Dose: 800 mg Documented by: Methylergonovine Maleate (Methergine) 0.2 mg IM ONETIME PRN PRN Reason: Excessive Vaginal Bleeding Misoprostol (Cytotec) 1,000 mcg RECTAL ONETIME PRN PRN Reason: excessive bleeding Nalbuphine HCl (Nubain) 5 mg IVPUSH ASDIRECTED PRN PRN Reason: Itching Ondansetron HCl (Zofran) 4 mg IVPUSH Q4H PRN PRN Reason: Nausea/Vomiting Oxycodone/Acetaminophen (Percocet 325-5 Mg) 1 tab PO Q4H PRN PRN Reason: Pain (moderate 4-6) Last Admin: 03/22/20 05:50 Dose: 1 tab Documented by: Oxycodone/Acetaminophen (Percocet 325-5 Mg) 2 tab PO Q4H PRN PRN Reason: Pain (moderate 4-6) Oxytocin (Pitocin) 10 unit IM ASDIRECTED PRN PRN Reason: Excessive Vaginal Bleeding Sodium Chloride (Saline Flush) 10 ml FLUSH ASDIRECTED PRN PRN Reason: Keep Vein Open Sodium Chloride (Saline Flush) 2.5 ml FLUSH ASDIRECTED PRN PRN Reason: Keep Vein Open Sodium Chloride (Normal Saline) 10 ml IV ASDIRECTED PRN PRN Reason: IV Use Discontinued Medications Cefazolin Sodium (Ancef) Confirm Administered Dose 2 gm .ROUTE .STK-MED ONE Stop: 03/20/20 09:50 Citric Acid/Sodium Citrate (Bicitra Solution) 30 ml PO ONETIME ONE Stop: 03/20/20 09:24 Last Admin: 03/21/20 19:09 Dose: Not Given Documented by: Citric Acid/Sodium Citrate (Bicitra Solution) Confirm Administered Dose 30 ml .ROUTE .STK-MED ONE Stop: 03/20/20 09:37 Last Admin: 03/21/20 07:59 Dose: Not Given Documented by: Diphenhydramine HCl (Benadryl) 25 mg IVPUSH Q4H PRN PRN Reason: Itching Stop: 03/21/20 09:54 Fentanyl (Sublimaze) 50 mcg IVPUSH Q1H PRN PRN Reason: Pain (severe 7-10) Sodium Chloride (Normal Saline) Confirm Administered Dose 20 mls @ as directed .ROUTE .STK-MED ONE Stop: 03/20/20 09:50 Ketorolac Tromethamine (Toradol) 30 mg IVPUSH Q6H [facility]LES Stop: 03/21/20 10:46 Last Admin: 03/21/20 11:05 Dose: 30 mg Documented by: Morphine Sulfate (Duramorph Pf) Confirm Administered Dose 10 mg .ROUTE .STK-MED ONE Stop: 03/20/20 09:40 Naloxone HCl (Narcan) 0.1 mg IVPUSH ONETIME PRN PRN Reason: Respiratory Depression Stop: 03/21/20 09:54 Octyl Cyanoacrylate (Dermabond Advance) Confirm Administered Dose 1 applic .ROUTE .STK-MED ONE Stop: 03/20/20 10:39 Last Admin: 03/21/20 07:59 Dose: Not Given Documented by: Ondansetron HCl (Zofran) 4 mg IVPUSH Q6H PRN PRN Reason: Nausea Oxycodone/Acetaminophen (Percocet 325-5 Mg) 2 tab PO Q6H PRN PRN Reason: Pain (moderate 4-6) Oxycodone/Acetaminophen (Percocet 325-5 Mg) 2 tab PO Q6H PRN PRN Reason: Pain (moderate 4-6) Oxytocin (Pitocin) Confirm Administered Dose 20 unit .ROUTE .STK-MED ONE Stop: 03/20/20 09:50 Phenylephrine HCl (Juan J-Synephrine) Confirm Administered Dose 10 mg .ROUTE .STK- MED ONE Stop: 03/20/20 09:47 - Exam General: Reports: Alert, Oriented, Cooperative, No Acute Distress Lungs: Reports: Normal Respiratory Effort Cardiovascular: Reports: Regular Rate, Regular Rhythm GI/Abdominal Exam: Soft, Non-Tender (Female) Exam: Deferred Rectal (Female) Exam: Deferred Back Exam: Reports: Normal Inspection Extremities: Normal Inspection, Normal Range of Motion, Non-Tender, Normal Capillary Refill Skin: Reports: Warm, Dry, Intact Wound/Incisions: Reports: Healing Well Neurological: Reports: No New Focal Deficit, Normal Gait, Normal Speech, Normal Tone, Sensation Intact Psy/Mental Status: Reports: Alert, Normal Affect, Normal Mood
--- NOTE | 2020-03-22 08:59 | PCM.PNPP ---
- General Info Date of Service: 03/22/20 Functional Status: Reports: Pain Controlled - Review of Systems General: Reports: No Symptoms HEENT: Reports: No Symptoms Pulmonary: Reports: No Symptoms Cardiovascular: Reports: No Symptoms Gastrointestinal: Reports: No Symptoms Genitourinary: Reports: No Symptoms Musculoskeletal: Reports: No Symptoms Skin: Reports: No Symptoms Neurological: Reports: No Symptoms Psychiatric: Reports: No Symptoms - General Info Date of Service: 03/22/20 - Patient Data Vital Signs - Most Recent: Last Vital Signs Temp 36.3 C 03/22/20 03:49 Pulse 77 03/22/20 03:49 Resp 14 03/22/20 03:49 BP 92/52 L 03/22/20 03:49 Pulse Ox 95 03/22/20 03:49 Weight - Most Recent: 68.492 kg Med Orders - Current: Current Medications Bisacodyl (Dulcolax) 10 mg RECTAL ONETIME PRN PRN Reason: Constipation Diphenhydramine HCl (Benadryl) 25 mg IVPUSH Q6H PRN PRN Reason: Itching or Nausea Docusate Sodium (Colace) 100 mg PO BID [facility] Last Admin: 03/21/20 21:47 Dose: 100 mg Documented by: Emollient Ointment (Lansinoh Hpa) 0 gm TOP ASDIRECTED PRN PRN Reason: Sore Nipples Fentanyl (Sublimaze) 50 - 100 mcg IVPUSH Q30M PRN PRN Reason: Pain (severe 7-10) Lactated Ringer's (Ringers, Lactated) 1,000 mls @ 500 mls/hr IV BOLUS [facility] Oxytocin/Sodium Chloride (Oxytocin 30 Unit/500 Ml-Ns) 30 unit in 500 mls @ 250 mls/hr IV TITRATE [facility] Lactated Ringer's (Ringers, Lactated) 1,000 mls @ 125 mls/hr IV ASDIRECTED [facility] Last Admin: 03/20/20 20:19 Dose: 125 mls/hr Documented by: Tranexamic Acid 1,000 mg/ (Sodium Chloride) 110 mls @ 660 mls/hr IV ONETIME PRN PRN Reason: Bleeding Ibuprofen (Motrin) 800 mg PO Q8H PRN PRN Reason: mild pain or fever Last Admin: 03/22/20 02:40 Dose: 800 mg Documented by: Methylergonovine Maleate (Methergine) 0.2 mg IM ONETIME PRN PRN Reason: Excessive Vaginal Bleeding Misoprostol (Cytotec) 1,000 mcg RECTAL ONETIME PRN PRN Reason: excessive bleeding Nalbuphine HCl (Nubain) 5 mg IVPUSH ASDIRECTED PRN PRN Reason: Itching Ondansetron HCl (Zofran) 4 mg IVPUSH Q4H PRN PRN Reason: Nausea/Vomiting Oxycodone/Acetaminophen (Percocet 325-5 Mg) 1 tab PO Q4H PRN PRN Reason: Pain (moderate 4-6) Last Admin: 03/22/20 05:50 Dose: 1 tab Documented by: Oxycodone/Acetaminophen (Percocet 325-5 Mg) 2 tab PO Q4H PRN PRN Reason: Pain (moderate 4-6) Oxytocin (Pitocin) 10 unit IM ASDIRECTED PRN PRN Reason: Excessive Vaginal Bleeding Sodium Chloride (Saline Flush) 10 ml FLUSH ASDIRECTED PRN PRN Reason: Keep Vein Open Sodium Chloride (Saline Flush) 2.5 ml FLUSH ASDIRECTED PRN PRN Reason: Keep Vein Open Sodium Chloride (Normal Saline) 10 ml IV ASDIRECTED PRN PRN Reason: IV Use Discontinued Medications Cefazolin Sodium (Ancef) Confirm Administered Dose 2 gm .ROUTE .STK-MED ONE Stop: 03/20/20 09:50 Citric Acid/Sodium Citrate (Bicitra Solution) 30 ml PO ONETIME ONE Stop: 03/20/20 09:24 Last Admin: 03/21/20 19:09 Dose: Not Given Documented by: Citric Acid/Sodium Citrate (Bicitra Solution) Confirm Administered Dose 30 ml .ROUTE .STK-MED ONE Stop: 03/20/20 09:37 Last Admin: 03/21/20 07:59 Dose: Not Given Documented by: Diphenhydramine HCl (Benadryl) 25 mg IVPUSH Q4H PRN PRN Reason: Itching Stop: 03/21/20 09:54 Fentanyl (Sublimaze) 50 mcg IVPUSH Q1H PRN PRN Reason: Pain (severe 7-10) Sodium Chloride (Normal Saline) Confirm Administered Dose 20 mls @ as directed .ROUTE .STK-MED ONE Stop: 03/20/20 09:50 Ketorolac Tromethamine (Toradol) 30 mg IVPUSH Q6H [facility] Stop: 03/21/20 10:46 Last Admin: 03/21/20 11:05 Dose: 30 mg Documented by: Morphine Sulfate (Duramorph Pf) Confirm Administered Dose 10 mg .ROUTE .STK-MED ONE Stop: 03/20/20 09:40 Naloxone HCl (Narcan) 0.1 mg IVPUSH ONETIME PRN PRN Reason: Respiratory Depression Stop: 03/21/20 09:54 Octyl Cyanoacrylate (Dermabond Advance) Confirm Administered Dose 1 applic .ROUTE .STK-MED ONE Stop: 03/20/20 10:39 Last Admin: 03/21/20 07:59 Dose: Not Given Documented by: Ondansetron HCl (Zofran) 4 mg IVPUSH Q6H PRN PRN Reason: Nausea Oxycodone/Acetaminophen (Percocet 325-5 Mg) 2 tab PO Q6H PRN PRN Reason: Pain (moderate 4-6) Oxycodone/Acetaminophen (Percocet 325-5 Mg) 2 tab PO Q6H PRN PRN Reason: Pain (moderate 4-6) Oxytocin (Pitocin) Confirm Administered Dose 20 unit .ROUTE .STK-MED ONE Stop: 03/20/20 09:50 Phenylephrine HCl (Juan J-Synephrine) Confirm Administered Dose 10 mg .ROUTE .STK- MED ONE Stop: 03/20/20 09:47 - Interaction Disposition, : [place] at Bedside Infant Interaction: Holding Support Person: Significant Other - Recovery Exam Fundal Tone: Firm Fundal Level: 1 Fingerbreadths Below Umbilicus Fundal Placement: Midline Lochia Amount: Scant Lochia Color: Rubra/Red Perineum Description: Intact, Minimal Bruising/Swelling Episiotomy/Laceration: None Bladder Status: Voiding Urinary Elimination: Voided - Exam General: Alert, Oriented HEENT: Pupils Equal Neck: Supple Lungs: Clear to Auscultation, Normal Respiratory Effort Cardiovascular: Regular Rate, Regular Rhythm GI/Abdominal Exam: Normal Bowel Sounds, Soft, Non-Tender, No Organomegaly, No Distention, No Abnormal Bruit, No Mass, Pelvis Stable Extremities: Normal Inspection, Normal Range of Motion, Non-Tender, No Pedal Edema, Normal Capillary Refill Skin: Warm, Dry, Intact Wound/Incisions: Healing Well Neurological: No New Focal Deficit Psy/Mental Status: Alert, Normal Affect, Normal Mood - Problem List Review Problem List Initiated/Reviewed/Updated: Yes - Assessment Assessment:: Status post section post to day #2 would send the patient home today with section instruction and prescription for pain - Plan Plan:: IUP 38+5 prvious C/section in active labor. Pt was schedule for elective repeat C/section on .
[2020-03-22 09:15] VITALS: BP 113/76; PULSE 68
[2020-03-22] MEDS: Docusate Sodium 100 MG Cap PO SCH (10:35)
== END 2020-03-22 11:00 | disposition home or self-care (01) | DRG 788 ==
LOC: MW.OBCHECK 08:40 → MW.OB 08:41 → MW.OBCHECK 09:22 → MW.OB 09:23
PROVIDERS: ADMIT Obstetrics & Gynecology; ATTEND Obstetrics & Gynecology
PROC: 10D00Z1 Extraction of Products of Conception, Low, Open Approach (ICD-10-PCS; principal; 2020-03-20)
DX: O34.211 Maternal care for low transverse scar from previous cesarean delivery (principal); Z3A.38 38 weeks gestation of pregnancy; Z37.0 Single live birth; Z11.59 Encounter for screening for other viral diseases
CPT/HCPCS: 01961; 36415; 51702; 59025; 59409; 85014; 85018; 85027; 86592; 86593; 86780; 86850; 86900; 86901; A9270-GY; J0690; J1885; J2270; J2370; J2590; J7120; U0002

== ENCOUNTER 2025-02-18 06:40 | Day surgery (SDC) | payer OTHER ==
[~2025-02-18 06:40] MED LIST: Sodium Chloride 0.9% 10 ML Syringe FLUSH PRN; Sodium Chloride 0.9% 2.5 ML Syringe FLUSH PRN; Sodium Chloride 0.9% 20 ML SDV IV PRN; ceFAZolin 2 GM in Water For Injection, Sterile 20 ML IVPUSH ONE
[2025-02-18] MEDS ORDERED: Bupivacaine 0.5% 30 ML SDV ONE (07:08)
[2025-02-18] MEDS ORDERED: Lidocaine 1% 20 ML MDV ONE (07:08)
[2025-02-18] MEDS: Lactated Ringers 1,000 ML IV SCH (07:25)
[2025-02-18] MEDS ORDERED: Lidocaine 1% 5 ML VIAL ONE (07:33)
[2025-02-18] MEDS ORDERED: Midazolam 1 MG/ML 2 ML SDV ONE (07:33)
[2025-02-18] MEDS ORDERED: Dexamethasone 4 MG/ML 5 ML MDV ONE (07:33)
[2025-02-18] MEDS ORDERED: Propofol 200 MG/20 ML SDV ONE (07:33)
[2025-02-18] MEDS ORDERED: fentaNYL 100 MCG/2 ML SDV ONE (07:33)
[2025-02-18] MEDS ORDERED: Morphine 2 MG/ML SYRINGE IVPUSH PRN (07:36)
[2025-02-18] MEDS ORDERED: Metoclopramide 10 MG/2 ML SDV IVPUSH PRN (07:36)
[2025-02-18] MEDS ORDERED: Albuterol 0.083% 2.5 MG/3 ML Neb Soln NEB PRN (07:36)
[2025-02-18] MEDS ORDERED: HYDROmorphone 1 MG/ML Syringe IVPUSH PRN (07:36)
[2025-02-18] MEDS ORDERED: fentaNYL 50 MCG/ML SDV IVPUSH PRN (07:36)
[2025-02-18] MEDS ORDERED: Naloxone 0.4 MG/ML SDV IVPUSH PRN (07:36)
[2025-02-18] MEDS ORDERED: Ondansetron 4 MG/2 ML SDV IVPUSH PRN (07:36)
[2025-02-18] MEDS ORDERED: Phenylephrine HCl In 0.9% NaCl 1 MG/10 ML Syringe IVPUSH PRN (07:36)
[2025-02-18] MEDS ORDERED: ceFAZolin 2 GM Vial ONE (08:11)
[2025-02-18] MEDS ORDERED: ePHEDrine 50 MG/ML SDV ONE (08:21)
[2025-02-18] MEDS ORDERED: Ketorolac 30 MG/ML SDV ONE (08:37)
[2025-02-18 12:31] VITALS: BP 106/69; PULSE 68
== END 2025-02-18 09:35 | disposition home or self-care (01) ==
LOC: MW.SDS 06:40
PROVIDERS: ATTEND Surgery
DX: D24.2 Benign neoplasm of left breast (principal); Z79.899 Other long term (current) drug therapy
CPT/HCPCS: 19120; 81025; J0665; J0690; J1100; J1885; J2003; J2250; J2704; J3010; J7120; 00400; J3490